=== PATIENT | female | born 1995 | race Caucasian/White ===

== ENCOUNTER 2020-06-22 19:11 | Emergency (ER) | payer SELFPAY ==
[~2020-06-22] VITALS: Ht 152.4 cm; Wt 90.7 kg
[~2020-06-22 19:11] MED LIST: BIRTH CONTROL
[2020-06-22] MEDS ORDERED: LACTATED RINGERS 1,000 ML IV ONE (19:45)
--- NOTE | 2020-06-22 19:57 | ED General ---
General Chief Complaint: General Problems/Pain Stated Complaint: DEHYDRATION/BODY CRAMPS Nursing Triage Note: PT AMBULATE TO ROOM 01 WITH C/O DEHYDRATION AND CRAMPING. PT REPORTS SHE ALSO CAME IN BECAUSE SHE THINKS SHE MIGHT BE . Nursing Sepsis Screen: No Definite Risk Source of Information: Patient Exam Limitations: No Limitations History of Present Illness Date Seen by Provider: Jun 22, 2020 Time Seen by Provider: 19:52 Initial Comments 25 year old causian female patient ambulated to ED with complaints of feeling "dehydrated" due to dry mouth and occasional body aches and her body "locks up". The patient reports she has been seen by her primary care provider for this before and was told it was due to her "metabolism". The patient states she also believes she could be . She states her LMP was approximately 3 years ago, but about 2 weeks ago she had vaginal bleeding for 4 days but does not feel this was her menstrual cycle. Timing/Duration: 2-3 Days Severity: Mild Associated Systoms: No Cough, No Fever/Chills; Headaches, Loss of Appetite; No Nausea/Vomiting Allergies and Home Medications Allergies Coded Allergies: No Known Drug Allergies (Unverified , 05/25/11) Patient Home Medication List Home Medication List Reviewed: Yes Review of Systems Review of Systems Constitutional: see HPI; No chills, No diaphoresis, No fever, No malaise, No weakness EENTM: see HPI (Reports dry mouth) Respiratory: no symptoms reported, see HPI; No cough, No short of breath, No wheezing Cardiovascular: no symptoms reported, see HPI; No edema, No palpitations, No syncope Gastrointestinal: see HPI; No abdominal pain, No constipation, No diarrhea, No heartburn; loss of appetite; No nausea, No vomiting Genitourinary: see HPI; No discharge, No dysuria; frequency; No hematuria Musculoskeletal: see HPI; No back pain; muscle cramps, muscle twitching; No muscle weakness, No neck pain Skin: no symptoms reported, see HPI; No change in color, No change in hair/nails, No rash Psychiatric/Neurological: No Symptoms Reported Hematologic/Lymphatic: No Symptoms Reported Immunological/Allergic: no symptoms reported All Other Systems Reviewed Negative Unless Noted: Yes Past Ejvvmkm-Qtdmyw-Fbjgdn Hx Past Med/Social Hx: Reviewed Nursing Past Med/Soc Hx Patient Social History Alcohol Use: Denies Use Recreational Drug Use: No Smoking Status: Current Everyday Smoker Type Used: Cigars 2nd Hand Smoke Exposure: Yes Recent Foreign Travel: No Contact w/Someone Who Travel: No Recent Infectious Disease Expo: No Recent Hopitalizations: No Physical Abuse: No Sexual Abuse: No Mistreated: No Fear: No Seasonal Allergies Seasonal Allergies: Yes Past Medical History Surgeries: Yes Bladder Surgery Respiratory: No Cardiac: No Neurological: No Genitourinary: No Gastrointestinal: No Musculoskeletal: Yes (BACK PAIN) Endocrine: No HEENT: No Cancer: No Psychosocial: Yes Anxiety, Depression Integumentary: Yes Eczema Blood Disorders: No Physical Exam Vital Signs Vital Signs - First Documented 06/22/20 19:39 Temp 35.7 Pulse 88 Resp 17 B/P (MAP) 102/76 (85) O2 Delivery Room Air Capillary Refill : Less Than 3 Seconds Height, Weight, BMI Height: '" Weight: lbs. oz. kg; 39.00 BMI Method: General Appearance: No Apparent Distress, WD/WN Eyes: Bilateral Eye Normal Inspection, Bilateral Eye PERRL HEENT: PERRL/EOMI, TMs Normal; No Moist Mucous Membranes, No Pale Conjunctivae (L), No Pale Conjunctivae (R) Neck: Full Range of Motion, Normal Inspection, Non Tender, Supple Respiratory: Lungs Clear, Normal Breath Sounds, No Accessory Muscle Use, No Respiratory Distress; No Accessory Muscle Use, No Crackles, No Decreased Breath Sounds, No Respiratory Distress, No Stridor Cardiovascular: Regular Rate, Rhythm, No Edema, No Murmur, Normal Peripheral Pulses Gastrointestinal: Normal Bowel Sounds, Non Tender, Soft Rectal: Deferred Back: Normal Inspection, No CVA Tenderness, No Vertebral Tenderness Extremity: Normal Capillary Refill, Normal Inspection, Normal Range of Motion, Non Tender, No Calf Tenderness, No Pedal Edema Neurologic/Psychiatric: Alert, Oriented x3, No Motor/Sensory Deficits, Normal Mood/Affect Skin: Normal Color, Warm/Dry Lymphatic: No Adenopathy Progress/Results/Core Measures Suspected Sepsis Recent Fever Within 48 Hours: No Infection Criteria Present: None New/Unexplained Altered Menta: No Sepsis Screen: No Definite Risk SIRS Temperature: Pulse: 88 Respiratory Rate: 17 Laboratory Tests 06/22/20 20:09: White Blood Count 13.6H Blood Pressure 102 /76 Mean: 85 Laboratory Tests 06/22/20 20:09: Creatinine 0.77, Platelet Count 278, Total Bilirubin 0.2 Results/Orders Lab Results Laboratory Tests Test 06/22/20 19:52 06/22/20 20:09 Range/Units Urine Color YELLOW Urine Clarity SL CLOUDY Urine pH 6.5 5-9 Urine Specific [place] 1.020 1.016-1.022 Urine Protein NEGATIVE NEGATIVE Urine Glucose (UA) NEGATIVE NEGATIVE Urine Ketones NEGATIVE NEGATIVE Urine Nitrite NEGATIVE NEGATIVE Urine Bilirubin NEGATIVE NEGATIVE Urine Urobilinogen 1.0 < = 1.0 MG/DL Urine Leukocyte Esterase NEGATIVE NEGATIVE Urine RBC (Auto) 3+ H NEGATIVE Urine RBC 10-25 H /HPF Urine WBC NONE /HPF Urine Squamous Epithelial Cells 5-10 /HPF Urine Crystals NONE /LPF Urine Bacteria TRACE /HPF Urine Casts PRESENT /LPF Urine Hyaline Casts RARE /LPF Urine Mucus LARGE H /LPF Urine Culture Indicated NO White Blood Count 13.6 H 4.3-11.0 10^3/uL Red Blood Count 4.72 3.80-5.11 10^6/uL Hemoglobin 13.0 11.5-16.0 g/dL Hematocrit 39 35-52 % Mean Corpuscular Volume 84 80-99 fL Mean Corpuscular Hemoglobin 28 25-34 pg Mean Corpuscular Hemoglobin Concent 33 32-36 g/dL Red Cell Distribution Width 13.5 10.0-14.5 % Platelet Count 278 130-400 10^3/uL Mean Platelet Volume 11.1 9.0-12.2 fL Immature Granulocyte % (Auto) 0 % Neutrophils (%) (Auto) 61 42-75 % Lymphocytes (%) (Auto) 29 12-44 % Monocytes (%) (Auto) 6 0-12 % Eosinophils (%) (Auto) 3 0-10 % Basophils (%) (Auto) 1 0-10 % Neutrophils # (Auto) 8.3 H 1.8-7.8 10^3/uL Lymphocytes # (Auto) 3.9 1.0-4.0 10^3/uL Monocytes # (Auto) 0.9 0.0-1.0 10^3/uL Eosinophils # (Auto) 0.4 H 0.0-0.3 10^3/uL Basophils # (Auto) 0.1 0.0-0.1 10^3/uL Immature Granulocyte # (Auto) 0.0 0.0-0.1 10^3/uL Sodium Level 139 135-145 MMOL/L Potassium Level 3.7 3.6-5.0 MMOL/L Chloride Level 104 98-107 MMOL/L Carbon Dioxide Level 24 21-32 MMOL/L Anion Gap 11 5-14 MMOL/L Blood Urea Nitrogen 11 7-18 MG/DL Creatinine 0.77 0.60-1.30 MG/DL Estimat Glomerular Filtration Rate > 60 BUN/Creatinine Ratio 14 Glucose Level 88 70-105 MG/DL Calcium Level 9.3 8.5-10.1 MG/DL Corrected Calcium 9.3 8.5-10.1 MG/DL Total Bilirubin 0.2 0.1-1.0 MG/DL Aspartate Amino Transf (AST/SGOT) 16 5-34 U/L Alanine Aminotransferase (ALT/SGPT) 19 0-55 U/L Alkaline Phosphatase 89 40-136 U/L Total Creatine Kinase 101 29-168 U/L Myoglobin 19.1 10.0-92.0 NG/ML Total Protein 7.1 6.4-8.2 GM/DL Albumin 4.0 3.2-4.5 GM/DL My Orders Orders - KAVITA BULLOCK Urine Bedside (06/22/20 19:14) Cbc With Automated Diff (06/22/20 19:14) Comprehensive Metabolic Panel (06/22/20 19:14) Creatine Kinase (06/22/20 19:14) Ua Culture If Indicated (06/22/20 19:14) Myoglobin Serum (06/22/20 19:14) Ed Iv/Invasive Line Start (06/22/20 19:45) Lactated Ringers (Lr 1000 Ml Iv Solution (06/22/20 19:45) Medications Given in ED Current Medications Medications Dose Ordered Sig/Jenifer Route Start Time Stop Time Status Last Admin Dose Admin Lactated Ringer's 1,000 ml @ 0 mls/hr Q0M ONCE IV 06/22/20 19:45 06/22/20 19:46 DC 06/22/20 20:08 999 MLS/HR Vital Signs/I&O 06/22/20 19:39 Temp 35.7 Pulse 88 Resp 17 B/P (MAP) 102/76 (85) O2 Delivery Room Air Capillary Refill : Less Than 3 Seconds Blood Pressure Mean: 85 Progress Note : Time: 19:52 Progress Note patient seen and evaluated, will get labs, LR IV 1 Liter and will re-evaluate. 2044 labs all within normal limits, patient reports feeling better. Discharge instructions and return precautions reviewed. Departure Impression Primary Impression: Myalgia Disposition: HOME, SELF-CARE Condition: Improved Departure-Patient Inst. Decision time for Depature: 20:50 Referrals: [facility]/NICOLE QUIÑONES MD (PCP/Family) Primary Care Physician Patient Instructions: Muscle and Bone Pain (DC) Add. Discharge Instructions: Establish care with [facility] in [place]. Increase water intake and use sports drinks. Return to the emergency department for new urgent health care needs. All discharge instructions reviewed with patient and/or family. Voiced unders tanding. KAVITA BULLOCK Jun 22, 2020 19:57
[2020-06-22 20:21] LABS: BASOPHILS # (AUTO) 0.1 10^3/uL (0.0-0.1); BASOPHILS % (AUTO) 1 % (0-10); EOSINOPHILS # (AUTO) 0.4 10^3/uL (0.0-0.3); EOSINOPHILS % (AUTO) 3 % (0-10); HEMATOCRIT 39 % (35-52); LYMPHOCYTES # (AUTO) 3.9 10^3/uL (1.0-4.0); LYMPHOCYTES % (AUTO) 29 % (12-44); MEAN CORPUSCULAR HEMOGLOBIN 28 pg (25-34); MEAN CORPUSCULAR HGB CONC 33 g/dL (32-36); MEAN CORPUSCULAR VOLUME 84 fL (80-99); MEAN PLATELET VOLUME 11.1 fL (9.0-12.2); MONOCYTES # (AUTO) 0.9 10^3/uL (0.0-1.0); MONOCYTES % (AUTO) 6 % (0-12); NEUTROPHILS # (AUTO) 8.3 10^3/uL (1.8-7.8); NEUTROPHILS % (AUTO) 61 % (42-75); PLATELET COUNT 278 10^3/uL (130-400); WHITE BLOOD COUNT 13.6 10^3/uL (4.3-11.0)
[2020-06-22 20:22] LABS: BILIRUBIN,URINE NEGATIVE (NEGATIVE); COLOR,URINE YELLOW; GLUCOSE, URINE (UA) NEGATIVE (NEGATIVE); KETONES,URINE NEGATIVE (NEGATIVE); LEUKOCYTE ESTERASE ,URINE NEGATIVE (NEGATIVE); NITRITE,URINE NEGATIVE (NEGATIVE); PH,URINE 6.5 (5-9); PROTEIN,URINE NEGATIVE (NEGATIVE)
[2020-06-22 20:29] LABS: BACTERIA,URINE TRACE /HPF; CLARITY,URINE SL CLOUDY; HYALINE CASTS, URINE RARE /LPF
[2020-06-22 20:33] LABS: CHLORIDE 104 MMOL/L (98-107); POTASSIUM 3.7 MMOL/L (3.6-5.0); SODIUM 139 MMOL/L (135-145)
[2020-06-22 20:34] LABS: CALCIUM 9.3 MG/DL (8.5-10.1)
[2020-06-22 20:35] LABS: GLUCOSE 88 MG/DL (70-105); TOTAL PROTEIN 7.1 GM/DL (6.4-8.2)
[2020-06-22 20:36] LABS: CARBON DIOXIDE 24 MMOL/L (21-32)
[2020-06-22 20:37] LABS: BILIRUBIN,TOTAL 0.2 MG/DL (0.1-1.0)
[2020-06-22 20:38] LABS: ALKALINE PHOSPHATASE 89 U/L (40-136)
[2020-06-22 20:39] LABS: CREATININE SERUM 0.77 MG/DL (0.60-1.30); GFR ESTIMATED > 60
[2020-06-22 20:40] LABS: BUN/CREATININE RATIO 14
[2020-06-22 20:42] LABS: ALANINE AMINOTRANSFERASE 19 U/L (0-55); CREATINE KINASE 101 U/L (29-168)
[2020-06-22 21:02] VITALS: BP 131/74
== END 2020-06-22 21:02 | disposition home or self-care (01) ==
LOC: EDUNIT# 19:11 → ER 19:14
DX: M79.10 Myalgia, unspecified site (principal); E86.0 Dehydration; F17.290 Nicotine dependence, other tobacco product, uncomplicated
CPT/HCPCS: 36415; 80053; 81000; 82550; 83874; 84703; 85025

== ENCOUNTER 2020-07-30 22:31 | Emergency (ER) | payer SELFPAY ==
--- NOTE | 2020-07-30 23:23 | NUR ---
Attempted to call patient inside, no answer
--- NOTE | 2020-07-30 23:37 | NUR ---
Called backa second time and still no answer
--- NOTE | 2020-07-30 23:54 | NUR ---
Pt never seen in ER; attempted to make contact with no answer.
== END 2020-07-30 23:55 | disposition left against medical advice (07) ==
LOC: EDUNIT# 22:31 → ER 22:34
DX: R07.0 Pain in throat (principal)

== ENCOUNTER 2021-01-04 21:26 | Emergency (ER) | payer SELFPAY ==
[~2021-01-04] VITALS: Ht 162.6 cm; Wt 102.1 kg
[2021-01-04 22:01] LABS: BASOPHILS # (AUTO) 0.1 10^3/uL (0.0-0.1); BASOPHILS % (AUTO) 1 % (0-10); EOSINOPHILS # (AUTO) 0.3 10^3/uL (0.0-0.3); EOSINOPHILS % (AUTO) 2 % (0-10); HEMATOCRIT 40 % (35-52); HEMOGLOBIN 13.1 g/dL (11.5-16.0); LYMPHOCYTES # (AUTO) 3.3 10^3/uL (1.0-4.0); LYMPHOCYTES % (AUTO) 27 % (12-44); MEAN CORPUSCULAR HEMOGLOBIN 28 pg (25-34); MEAN CORPUSCULAR HGB CONC 33 g/dL (32-36); MEAN CORPUSCULAR VOLUME 86 fL (80-99); MONOCYTES # (AUTO) 0.8 10^3/uL (0.0-1.0); MONOCYTES % (AUTO) 6 % (0-12); NEUTROPHILS # (AUTO) 7.7 10^3/uL (1.8-7.8); NEUTROPHILS % (AUTO) 64 % (42-75); PLATELET COUNT 284 10^3/uL (130-400); WHITE BLOOD COUNT 12.1 10^3/uL (4.3-11.0)
[2021-01-04 22:14] LABS: BILIRUBIN,URINE NEGATIVE (NEGATIVE); CLARITY,URINE CLEAR; COLOR,URINE YELLOW; GLUCOSE, URINE (UA) NEGATIVE (NEGATIVE); KETONES,URINE NEGATIVE (NEGATIVE); LEUKOCYTE ESTERASE ,URINE NEGATIVE (NEGATIVE); NITRITE,URINE NEGATIVE (NEGATIVE); PROTEIN,URINE NEGATIVE (NEGATIVE)
[2021-01-04 22:19] LABS: BACTERIA,URINE TRACE /HPF; WBC,URINE RARE /HPF
--- NOTE | 2021-01-04 23:02 | ED GU-Female ---
General Chief Complaint: Female Reproductive Stated Complaint: VAGINAL PAIN / BURNING / APROX 4-5 W PREG Source: patient Exam Limitations: no limitations History of Present Illness Date Seen by Provider: Jan 04, 2021 Time Seen by Provider: 21:35 Initial Comments This 25-year-old 2 para 1 presents to the emergency room at an estimated 5 weeks gestational age with complaints of right-sided pelvic pain and spotting. [facility] where she had a test performed and blood work drawn. She was found to be . In addition to her spotting and pelvic pain she reports worsening pain in the pelvis after urination. She denies any urethral type pain during urination, vaginal discharge, or pain with intercourse. She is not suspicious of vaginal infection. She does report being Rh-. She has had nausea for the past few weeks. No fevers. No constipation or diarrhea. LMP was around 28 November. Allergies and Home Medications Allergies Coded Allergies: No Known Drug Allergies (Unverified , 05/25/11) Patient Home Medication List Home Medication List Reviewed: Yes Review of Systems Review of Systems Constitutional: no symptoms reported EENTM: no symptoms reported Respiratory: no symptoms reported Cardiovascular: no symptoms reported Gastrointestinal: see HPI Genitourinary: see HPI : Yes Musculoskeletal: no symptoms reported Skin: no symptoms reported Psychiatric/Neurological: No Symptoms Reported Endocrine: No Symptoms Reported Hematologic/Lymphatic: No Symptoms Reported Past Aamvxjz-Jdanrc-Wjnmka Hx Past Med/Social Hx: Reviewed Nursing Past Med/Soc Hx Patient Social History Alcohol Use: Denies Use Type Used: Cigars 2nd Hand Smoke Exposure: Yes Recent Hopitalizations: No Seasonal Allergies Seasonal Allergies: Yes Past Medical History Surgeries: Yes Bladder Surgery Respiratory: No Cardiac: No Neurological: No Genitourinary: No Gastrointestinal: No Musculoskeletal: Yes (BACK PAIN) Endocrine: No HEENT: No Cancer: No Psychosocial: Yes Anxiety, Depression Integumentary: Yes Eczema Blood Disorders: No Physical Exam Vital Signs Capillary Refill : Height, Weight, BMI Height: '" Weight: lbs. oz. kg; 39.00 BMI Method: General Appearance: WD/WN, no apparent distress HEENT: PERRL/EOMI, normal ENT inspection Neck: normal inspection Cardiovascular: regular rate, rhythm, no edema, no murmur Respiratory: lungs clear, normal breath sounds, no respiratory distress Gastrointestinal: normal bowel sounds, soft, other (Tenderness over the right pelvis) Extremities: normal inspection, no pedal edema Neurologic/Psychiatric: mannequin mounter II-XII nml as tested, no motor/sensory deficits, alert, normal mood/affect, oriented x 3 Skin: normal color, warm/dry Progress/Results/Core Measures Suspected Sepsis SIRS Temperature: Pulse: Respiratory Rate: Laboratory Tests 01/04/21 21:50: White Blood Count 12.1H Blood Pressure / Mean: Laboratory Tests 01/04/21 21:50: Platelet Count 284 Results/Orders Lab Results Laboratory Tests Test 01/04/21 21:35 01/04/21 21:50 Range/Units Urine Color YELLOW Urine Clarity CLEAR Urine pH 6.0 5-9 Urine Specific [place] 1.025 H 1.016-1.022 Urine Protein NEGATIVE NEGATIVE Urine Glucose (UA) NEGATIVE NEGATIVE Urine Ketones NEGATIVE NEGATIVE Urine Nitrite NEGATIVE NEGATIVE Urine Bilirubin NEGATIVE NEGATIVE Urine Urobilinogen 0.2 < = 1.0 MG/DL Urine Leukocyte Esterase NEGATIVE NEGATIVE Urine RBC (Auto) 3+ H NEGATIVE Urine RBC 5-10 H /HPF Urine WBC RARE /HPF Urine Squamous Epithelial Cells 10-25 H /HPF Urine Crystals NONE /LPF Urine Bacteria TRACE /HPF Urine Casts NONE /LPF Urine Mucus SMALL H /LPF Urine Culture Indicated NO White Blood Count 12.1 H 4.3-11.0 10^3/uL Red Blood Count 4.67 3.80-5.11 10^6/uL Hemoglobin 13.1 11.5-16.0 g/dL Hematocrit 40 35-52 % Mean Corpuscular Volume 86 80-99 fL Mean Corpuscular Hemoglobin 28 25-34 pg Mean Corpuscular Hemoglobin Concent 33 32-36 g/dL Red Cell Distribution Width 13.8 10.0-14.5 % Platelet Count 284 130-400 10^3/uL Mean Platelet Volume 11.0 9.0-12.2 fL Immature Granulocyte % (Auto) 0 % Neutrophils (%) (Auto) 64 42-75 % Lymphocytes (%) (Auto) 27 12-44 % Monocytes (%) (Auto) 6 0-12 % Eosinophils (%) (Auto) 2 0-10 % Basophils (%) (Auto) 1 0-10 % Neutrophils # (Auto) 7.7 1.8-7.8 10^3/uL Lymphocytes # (Auto) 3.3 1.0-4.0 10^3/uL Monocytes # (Auto) 0.8 0.0-1.0 10^3/uL Eosinophils # (Auto) 0.3 0.0-0.3 10^3/uL Basophils # (Auto) 0.1 0.0-0.1 10^3/uL Immature Granulocyte # (Auto) 0.0 0.0-0.1 10^3/uL C-Reactive Protein High Sensitivity 2.08 H 0.00-0.50 MG/DL Human Chorionic Gonadotropin, Quant 826 H <5 MIU/ML My Orders Orders - MAYKEL IBANEZ MD Ua Culture If Indicated (01/04/21 21:35) Cbc With Automated Diff (01/04/21 21:41) Hcg,Quantitative (01/04/21 21:41) Abo Rh Type (01/04/21 21:41) Ed Iv/Invasive Line Start (01/04/21 21:41) Hs C Reactive Protein (01/04/21 21:41) Rh Immune Globulin Rhophylac (01/04/21 22:36) Rhogam Administration (01/04/21 22:36) Vital Signs/I&O Capillary Refill : Progress Note : Progress Note Quantitative hCG was 826. This is below the 2500 cutoff for ultrasound call back. An ultrasound order was given for tomorrow morning. Patient was advised to return if symptoms worsen and to schedule a follow-up appointment for the clinic tomorrow morning. She was found to be Rh-, and RhoGam was administered. Departure Impression Primary Impression: Pelvic pain affecting Qualified Codes: O26.891 - Other specified related conditions, first trimester; R10.2 - Pelvic and perineal pain Additional Impressions: Vaginal bleeding during Rh negative status during Qualified Codes: O26.891 - Other specified related conditions, first trimester; Z67.91 - Unspecified blood type, rh negative Disposition: 01 HOME, SELF-CARE Condition: Stable Departure-Patient Inst. Decision time for Depature: 22:59 Referrals: [facility] (PCP/Family) Primary Care Physician Patient Instructions: in Rh-Negative People, Bleeding In Early Add. Discharge Instructions: Drink plenty of clear liquids to stay well-hydrated. Observe pelvic rest (nothing in the vagina including intercourse) until cleared by your doctor. You may take Tylenol (acetaminophen) up to 1000 mg every 6 hours as needed for pain. Call with questions or concerns. Return to the ER if you have worsening symptoms. Return to the hospital at 7:30 tomorrow morning for a ultrasound. This will confirm that your dates and ensure your pain is not from an ectopic . All discharge instructions reviewed with patient and/or family. Voiced understanding. Copy Copies To 1: HONG JOYA JOSHUA T MD Jan 04, 2021 23:02
[2021-01-04 23:15] VITALS: BP 114/75
[2021-01-04 23:26] VITALS: BP 111/85
== END 2021-01-04 23:26 | disposition home or self-care (01) ==
LOC: EDUNIT# 21:26 → ER 21:28
DX: O20.0 Threatened abortion (principal); O26.891 Other specified pregnancy related conditions, first trimester; Z67.91 Unspecified blood type, Rh negative; O99.331 Smoking (tobacco) complicating pregnancy, first trimester; F17.290 Nicotine dependence, other tobacco product, uncomplicated; Z3A.01 Less than 8 weeks gestation of pregnancy
CPT/HCPCS: 36415; 81000; 84702; 85025; 86141; 86900; 86901

== ENCOUNTER → 2021-01-05 | Outpatient (CLI) | payer SELFPAY ==
--- NOTE | 2021-01-05 09:59 | Diagnostic Imaging Report ---
INDICATION: Vaginal bleeding. Uterus measures 7.9 x 4.5 x 5.6 cm. There is a tiny intrauterine gestational sac measuring 3 mm in size. No definite yolk sac or pole is identified at this time, likely owing to early gestation. No fernando-gestational sac hemorrhage is detected. Left ovary was not visualized. Right ovary is unremarkable. No adnexal mass or free fluid is detected. IMPRESSION: Tiny intrauterine gestational sac without evidence of pole or yolk sac at this time likely owing to early gestation. Follow-up ultrasound and/or correlation with serial beta hCG levels could be performed to confirm viability. No definite complicating features are detected. Dictated by: Dictated on workstation # [id number]
== END ==
LOC: RAD 08:00
PROVIDERS: ATTEND Family Medicine
DX: O26.851 Spotting complicating pregnancy, first trimester (principal); N93.9 Abnormal uterine and vaginal bleeding, unspecified; R10.2 Pelvic and perineal pain; Z3A.00 Weeks of gestation of pregnancy not specified
CPT/HCPCS: 76801; 76817

== ENCOUNTER 2021-01-17 21:35 | Emergency (ER) | payer MEDICAID ==
[~2021-01-17] VITALS: Ht 152 cm; Wt 95.0 kg
[2021-01-17] MEDS ORDERED: LACTATED RINGERS 1,000 ML IV ONE (22:15)
[2021-01-17] MEDS ORDERED: ONDANSETRON 4 MG/2 ML (SDV) Z0FRAN IVP ONE (22:15)
--- NOTE | 2021-01-17 22:21 | ED General ---
General Chief Complaint: Dizziness/Syncope Stated Complaint: LIGHTHEADED, BODY ACHES, 6 WKS Nursing Triage Note: PT PRESENTS TO ED FOR SOME NAUSEA, PT STATES SHE IS 6 WEEKS AND THE NAUSEA HAS BEEN GOING ON SINCE THEN. PT C/O FEELING LIGHT HEADED, STATES IT STARTED YESTERDAT. PT ALSO REPORTS MUSCLE ACHES OF LOWER EXTREMITIES. PER PT THIS HAS HAPPENED TO HER BEFORE DUE TO LOW POTASSIUM. PT ALSO HAS A RASH ON THE RIGHT SIDE OF HER NECK THAT SHE NOTICED TODAY. Nursing Sepsis Screen: No Definite Risk Source of Information: Patient History of Present Illness Date Seen by Provider: Jan 17, 2021 Time Seen by Provider: 21:49 Initial Comments PT ARRIVES VIA POV FROM HOME PT WITH MULTIPLE COMPLAINTS--SOME ONGOING DUE TO RECENT DX OF PT IS APPROXIMATELY 6 WEEKS , WITH LMP 11/28/20. C/O NAUSEA, OCCASIONAL VOMITING "A LITTLE BIT" --MOSTLY DRY HEAVES, SINCE BECOMING NO DIARRHEA NO ABDOMINAL PAIN NO VAGINAL BLEEDING NO URINARY SYMPTOMS C/O LEGS ACHING--HIPS AND ANTERIOR THIGHS ARE SORE NO INJURY NO PARESTHESIAS OR MOTOR DEFICITS STATES SHE FELT LIKE THIS ONCE BEFORE WHEN HER POTASSIUM WAS LOW C/O FEELING LIGHTHEADED STATES SHE "FEELS REALLY DEHYDRATED" STATES SHE HAS NOT BEEN DRINKING WATER--"DON'T LIKE IT" STATES SHE HAS HAD 2 BOTTLES OF WATER AND 2 BOTTLES OF POP TODAY PT DID NOT EAT BREAKFAST PT ATE CHIPS AND A CANDY BAR FOR LUNCH PT HAD PIZZA FOR DINNER PT ALSO C/O RASH ON BOTH SIDES OF HER NECK--ITCHY AND SORE--STARTED TODAY GOT A NEW NECKLACE AND SYMPTOMS BEGAN WHILE WEARING THAT PT DENIES ANY OTHER COVID-19 SYMPTOMS NO FEVER/SWEATS/CHILLS NO SORE THROAT NO LOSS OF TASTE/SMELL NO COUGH OR URI SYMPTOMS NO SHORTNESS OF BREATH NO CHEST PAIN NO HEADACHE NO KNOWN SICK CONTACTS PT HAS NOT TAKEN ANYTHING FOR SYMPTOMS HAD FIRST VISIT YESTERDAY. NEXT APPOINTMENT 02/14/21 SEEN HERE 01/05/21 FOR PELVIC PAIN AND SPOTTING. LMP 11/28/20 HAD OUTPATIENT ULTRASOUND THAT SAME DAY--SHOWED INTRA-UTERINE GESTATIONAL SAC PT IS RH NEGATIVE AND RECEIVED RHOGAM SHOT AT THAT TIME. PCP; [facility] Allergies and Home Medications Allergies Coded Allergies: No Known Drug Allergies (Unverified , 05/25/11) Home Medications Doxylamine/Pyridoxine HCl 1 Each Tablet., 2 EACH PO HS Prescribed by: NICOLE GONSALEZ on 01/17/21 4119 Patient Home Medication List Home Medication List Reviewed: Yes Review of Systems Review of Systems Constitutional: see HPI, dizziness EENTM: no symptoms reported Respiratory: no symptoms reported; No cough, No short of breath Cardiovascular: no symptoms reported Gastrointestinal: see HPI; No abdominal pain, No diarrhea; nausea, vomiting Genitourinary: no symptoms reported : Yes Expected Date of Delivery: Sep 12, 2021 LMP: Nov 28, 2020 Musculoskeletal: see HPI Skin: see HPI Psychiatric/Neurological: No Symptoms Reported; Denies Headache, Denies Numbness, Denies Paresthesia, Denies Tingling, Denies Weakness Hematologic/Lymphatic: No Symptoms Reported Immunological/Allergic: no symptoms reported Past Qmkykzh-Sahlbm-Yafgrl Hx Past Med/Social Hx: Reviewed and Corrections made Patient Social History Alcohol Use: Occasionally Uses Drug of Choice: THC Smoking Status: Current Everyday Smoker Type Used: Cigars, Cigarettes 2nd Hand Smoke Exposure: Yes Recent Infectious Disease Expo: No Recent Hopitalizations: No Substance type: Marijuana Seasonal Allergies Seasonal Allergies: Yes Past Medical History Surgeries: Yes Bladder Surgery Respiratory: No Cardiac: No Neurological: No : Yes (PT REPORTS SHE IS 6 WEEKS .) Expected Date of Delivery: Sep 12, 2021 Last Menstrual Period: Nov 28, 2020 Genitourinary: Yes (BLADDER SURGERY) Gastrointestinal: No Musculoskeletal: Yes (BACK PAIN) Endocrine: No HEENT: No Cancer: No Psychosocial: Yes Anxiety, Depression Integumentary: Yes Eczema Blood Disorders: No Physical Exam Vital Signs Vital Signs - First Documented 01/17/21 01/17/21 21:53 23:52 Temp 36.0 Pulse 96 Resp 16 B/P (MAP) 135/79 (97) Pulse Ox 98 O2 Delivery Room Air Capillary Refill : Less Than 3 Seconds Height, Weight, BMI Height: '" Weight: lbs. oz. kg; 41.00 BMI Method: General Appearance: No Apparent Distress, WD/WN, Obese, Other (WALKS AND MOVES WITHOUT DIFFICULTY; OBESE, MALODOROUS) HEENT: PERRL/EOMI, TMs Normal, Normal ENT Inspection, Pharynx Normal, Moist Mucous Membranes, Other (TONGUE PIERCED) Neck: Full Range of Motion, Normal Inspection, Non Tender, Supple Respiratory: Normal Breath Sounds, No Accessory Muscle Use, No Respiratory Distress Cardiovascular: Regular Rate, Rhythm, No Edema, No JVD, No Murmur Gastrointestinal: Normal Bowel Sounds, No Organomegaly, No Pulsatile Mass, Non Tender, Soft Back: No CVA Tenderness Extremity: Normal Range of Motion, Non Tender, No Calf Tenderness, No Pedal Edema, Other (VERY SLIGHT TENDERNESS TO LATERAL HIPS AND ANTERIOR/LATERAL THIGHS --EQUAL BILATERALLY. FULL ROM. ) Neurologic/Psychiatric: Alert, Oriented x3, No Motor/Sensory Deficits, Normal Mood/Affect, physical education aide II-XII Norm as Tested Skin: Normal Color, Warm/Dry, Rash (FEW SMALL PATCHY AREAS OF MILD ERYTHEMA TO ANTERIOR AND BILATERAL NECK--NO SKIN BREAKDOWN OR BLISTERING. NON-TENDER) Progress/Results/Core Measures Suspected Sepsis Recent Fever Within 48 Hours: No Infection Criteria Present: None New/Unexplained Altered Menta: No Sepsis Screen: No Definite Risk SIRS Temperature: Pulse: 96 Respiratory Rate: 16 Laboratory Tests 01/17/21 22:30: White Blood Count 11.9H Blood Pressure 135 /79 Mean: 97 Laboratory Tests 01/17/21 22:30: Creatinine 0.67, Platelet Count 282, Total Bilirubin 0.2 Results/Orders Lab Results Laboratory Tests Test 01/17/21 22:30 01/17/21 23:02 Range/Units White Blood Count 11.9 H 4.3-11.0 10^3/uL Red Blood Count 4.45 3.80-5.11 10^6/uL Hemoglobin 12.4 11.5-16.0 g/dL Hematocrit 38 35-52 % Mean Corpuscular Volume 84 80-99 fL Mean Corpuscular Hemoglobin 28 25-34 pg Mean Corpuscular Hemoglobin Concent 33 32-36 g/dL Red Cell Distribution Width 14.0 10.0-14.5 % Platelet Count 282 130-400 10^3/uL Mean Platelet Volume 10.9 9.0-12.2 fL Immature Granulocyte % (Auto) 0 % Neutrophils (%) (Auto) 67 42-75 % Lymphocytes (%) (Auto) 24 12-44 % Monocytes (%) (Auto) 6 0-12 % Eosinophils (%) (Auto) 2 0-10 % Basophils (%) (Auto) 0 0-10 % Neutrophils # (Auto) 8.0 H 1.8-7.8 10^3/uL Lymphocytes # (Auto) 2.9 1.0-4.0 10^3/uL Monocytes # (Auto) 0.7 0.0-1.0 10^3/uL Eosinophils # (Auto) 0.3 0.0-0.3 10^3/uL Basophils # (Auto) 0.1 0.0-0.1 10^3/uL Immature Granulocyte # (Auto) 0.0 0.0-0.1 10^3/uL Sodium Level 138 135-145 MMOL/L Potassium Level 3.4 L 3.6-5.0 MMOL/L Chloride Level 104 98-107 MMOL/L Carbon Dioxide Level 20 L 21-32 MMOL/L Anion Gap 14 5-14 MMOL/L Blood Urea Nitrogen 9 7-18 MG/DL Creatinine 0.67 0.60-1.30 MG/DL Estimat Glomerular Filtration Rate > 60 BUN/Creatinine Ratio 13 Glucose Level 81 70-105 MG/DL Calcium Level 9.5 8.5-10.1 MG/DL Corrected Calcium 9.4 8.5-10.1 MG/DL Magnesium Level 1.7 1.6-2.4 MG/DL Total Bilirubin 0.2 0.1-1.0 MG/DL Aspartate Amino Transf (AST/SGOT) 20 5-34 U/L Alanine Aminotransferase (ALT/SGPT) 27 0-55 U/L Alkaline Phosphatase 76 40-136 U/L Total Protein 7.3 6.4-8.2 GM/DL Albumin 4.1 3.2-4.5 GM/DL Amylase Level 39 25-125 U/L Lipase 17 8-78 U/L Urine Color YELLOW Urine Clarity CLEAR Urine pH 6.5 5-9 Urine Specific [place] 1.015 L 1.016-1.022 Urine Protein NEGATIVE NEGATIVE Urine Glucose (UA) NEGATIVE NEGATIVE Urine Ketones NEGATIVE NEGATIVE Urine Nitrite NEGATIVE NEGATIVE Urine Bilirubin NEGATIVE NEGATIVE Urine Urobilinogen 0.2 < = 1.0 MG/DL Urine Leukocyte Esterase NEGATIVE NEGATIVE Urine RBC (Auto) 1+ H NEGATIVE Urine RBC RARE /HPF Urine WBC NONE /HPF Urine Squamous Epithelial Cells 2-5 /HPF Urine Crystals NONE /LPF Urine Bacteria TRACE /HPF Urine Casts NONE /LPF Urine Mucus NEGATIVE /LPF Urine Culture Indicated NO Urine Opiates Screen NEGATIVE NEGATIVE Urine Oxycodone Screen NEGATIVE NEGATIVE Urine Methadone Screen NEGATIVE NEGATIVE Urine Propoxyphene Screen NEGATIVE NEGATIVE Urine Barbiturates Screen NEGATIVE NEGATIVE Ur Tricyclic Antidepressants Screen NEGATIVE NEGATIVE Urine Phencyclidine Screen NEGATIVE NEGATIVE Urine Amphetamines Screen NEGATIVE NEGATIVE Urine Methamphetamines Screen NEGATIVE NEGATIVE Urine Benzodiazepines Screen NEGATIVE NEGATIVE Urine Cocaine Screen NEGATIVE NEGATIVE Urine Cannabinoids Screen POSITIVE H NEGATIVE My Orders Orders - NICOLE GONSALEZ DO Ed Iv/Invasive Line Start (01/17/21 22:14) Amylase (01/17/21 22:14) Cbc With Automated Diff (01/17/21 22:14) Comprehensive Metabolic Panel (01/17/21 22:14) Drug Screen Stat (Urine) (01/17/21 22:14) Lipase (01/17/21 22:14) Magnesium (01/17/21 22:14) Ua Culture If Indicated (01/17/21 22:14) Ondansetron Injection (Zofran Injectio (01/17/21 22:15) Ed Iv/Invasive Line Start (01/17/21 22:14) Lactated Ringers (Lr 1000 Ml Iv Solution (01/17/21 22:15) Potassium Chloride (Tablet) (Klor Con Ta (01/17/21 23:45) Medications Given in ED Current Medications Medications Dose Ordered Sig/Jenifer Route Start Time Stop Time Status Last Admin Dose Admin Lactated Ringer's 1,000 ml @ 0 mls/hr Q0M ONCE IV 01/17/21 22:15 01/17/21 22:16 DC 01/17/21 22:35 1,000 MLS/HR Ondansetron HCl 4 mg ONCE ONCE IVP 01/17/21 22:15 01/17/21 22:16 DC 01/17/21 22:34 4 MG Potassium Chloride 20 meq ONCE ONCE PO 01/17/21 23:45 01/17/21 23:46 DC 01/17/21 23:51 20 MEQ Vital Signs/I&O 01/17/21 01/17/21 21:53 23:52 Temp 36.0 36.0 Pulse 96 87 Resp 16 16 B/P (MAP) 135/79 (97) 123/72 (97) Pulse Ox 98 O2 Delivery Room Air Room Air 01/18/21 00:00 Intake Total 1000 ml Balance 1000 ml Capillary Refill : Less Than 3 Seconds Blood Pressure Mean: 97 Progress Note : Progress Note UNEVENTFUL ER STAY GIVEN IV FLUIDS AND ZOFRAN WITH IMPROVEMENT IN SYMPTOMS ALSO GAVE DOSE OF ORAL POTASSIUM DISCUSSED HEALTHY EATING IN , WELL HEALTHY HABITS, WHICH INCLUDE NO SMOKING CIGARETTES, NO DRUG USE WHICH INCLUDES NO USE OF MARIJUANA, AND NO ALCOHOL USE. ALSO ADVISED TO INCREASE WATER INTAKE AND DECREASE POP INTAKE Departure Impression Primary Impression: Nausea and vomiting during prior to 22 weeks gestation Additional Impressions: Marijuana use MILD HYPOKALEMIA CONTACT DERMATITIS TO NECK Smoker Disposition: 01 HOME, SELF-CARE Condition: Stable Departure-Patient Inst. Referrals: [facility] (PCP) Primary Care Physician SHYANN RIVERA APRN (Family) Primary Care Physician Patient Instructions: Drug Abuse and Drug Addiction (DC), How to Plan and Prepare for a Healthy , Marijuana Use and Addiction (DC), Morning Sickness (DC), Nausea and Vomiting of (DC) Add. Discharge Instructions: NO MARIJUANA OR DRUGS OF ANY KIND!! NO SMOKING!!! NO ALCOHOL! LOTS OF CLEAR LIQUIDS--WATER, BROTH, JELLO, GATORADE BRATS DIET--BANANAS, RICE, APPLESAUCE, TOAST, SALTINES FOLLOW UP WITH YOUR DR IN 2-3 DAYS IF NO BETTER, OTHERWISE FOLLOW UP FOR ROUTINE CARE All discharge instructions reviewed with patient and/or family. Voiced understanding. Scripts Doxylamine/Pyridoxine HCl (Marilee Dorman 10-10 mg Tablet) 1 Each Tablet.dr 2 EACH PO HS, #60 TAB Prov: NICOLE GONSALEZ DO 01/17/21 NICOLE GONSALEZ DO Jan 17, 2021 22:21
[2021-01-17 22:43] LABS: BASOPHILS # (AUTO) 0.1 10^3/uL (0.0-0.1); BASOPHILS % (AUTO) 0 % (0-10); EOSINOPHILS # (AUTO) 0.3 10^3/uL (0.0-0.3); EOSINOPHILS % (AUTO) 2 % (0-10); HEMATOCRIT 38 % (35-52); HEMOGLOBIN 12.4 g/dL (11.5-16.0); LYMPHOCYTES # (AUTO) 2.9 10^3/uL (1.0-4.0); LYMPHOCYTES % (AUTO) 24 % (12-44); MEAN CORPUSCULAR HEMOGLOBIN 28 pg (25-34); MEAN CORPUSCULAR HGB CONC 33 g/dL (32-36); MEAN CORPUSCULAR VOLUME 84 fL (80-99); MEAN PLATELET VOLUME 10.9 fL (9.0-12.2); MONOCYTES # (AUTO) 0.7 10^3/uL (0.0-1.0); MONOCYTES % (AUTO) 6 % (0-12); NEUTROPHILS % (AUTO) 67 % (42-75); PLATELET COUNT 282 10^3/uL (130-400); WHITE BLOOD COUNT 11.9 10^3/uL (4.3-11.0)
[2021-01-17 22:54] LABS: ALBUMIN 4.1 GM/DL (3.2-4.5); CHLORIDE 104 MMOL/L (98-107); POTASSIUM 3.4 MMOL/L (3.6-5.0); SODIUM 138 MMOL/L (135-145)
[2021-01-17 22:55] LABS: AMYLASE 39 U/L (25-125); CALCIUM 9.5 MG/DL (8.5-10.1)
[2021-01-17 22:56] LABS: GLUCOSE 81 MG/DL (70-105); TOTAL PROTEIN 7.3 GM/DL (6.4-8.2)
[2021-01-17 22:58] LABS: BILIRUBIN,TOTAL 0.2 MG/DL (0.1-1.0); CARBON DIOXIDE 20 MMOL/L (21-32)
[2021-01-17 23:00] LABS: ALKALINE PHOSPHATASE 76 U/L (40-136); CREATININE SERUM 0.67 MG/DL (0.60-1.30); GFR ESTIMATED > 60
[2021-01-17 23:01] LABS: BUN/CREATININE RATIO 13
[2021-01-17 23:03] LABS: ALANINE AMINOTRANSFERASE 27 U/L (0-55); MAGNESIUM 1.7 MG/DL (1.6-2.4)
[2021-01-17 23:04] LABS: LIPASE 17 U/L (8-78)
[2021-01-17 23:11] LABS: BILIRUBIN,URINE NEGATIVE (NEGATIVE); CLARITY,URINE CLEAR; COLOR,URINE YELLOW; GLUCOSE, URINE (UA) NEGATIVE (NEGATIVE); KETONES,URINE NEGATIVE (NEGATIVE); LEUKOCYTE ESTERASE ,URINE NEGATIVE (NEGATIVE); NITRITE,URINE NEGATIVE (NEGATIVE); PH,URINE 6.5 (5-9); PROTEIN,URINE NEGATIVE (NEGATIVE)
[2021-01-17 23:17] LABS: BACTERIA,URINE TRACE /HPF; RBC,URINE RARE /HPF
[2021-01-17 23:22] LABS: AMPHETAMINE SCREEN, URINE NEGATIVE (NEGATIVE); BARBITURATE SCREEN URINE NEGATIVE (NEGATIVE); BENZODIAZEPINES SCREEN URINE NEGATIVE (NEGATIVE); CANNABINOID SCREEN, URINE POSITIVE (NEGATIVE); COCAINE SCREEN URINE NEGATIVE (NEGATIVE); METHADONE STAT NEGATIVE (NEGATIVE); METHAMPHETAMINE SCREEN URINE S NEGATIVE (NEGATIVE); OPIATE SCREEN URINE NEGATIVE (NEGATIVE); OXYCODONE STAT NEGATIVE (NEGATIVE); PROPOXYPHENE STAT NEGATIVE (NEGATIVE); TRICYCLIC ANTIDEPRESSANTS SCRE NEGATIVE (NEGATIVE)
[2021-01-17] MEDS ORDERED: DOXY1TAB3 PO (23:37)
[2021-01-17] MEDS ORDERED: KCL 10 MEQ TAB (MICRO K) PO ONE (23:45)
[2021-01-17 23:52] VITALS: BP 123/72
== END 2021-01-17 23:56 | disposition home or self-care (01) ==
LOC: EDUNIT# 21:35 → ER 21:38
DX: O21.0 Mild hyperemesis gravidarum (principal); F12.90 Cannabis use, unspecified, uncomplicated; E87.6 Hypokalemia; L25.9 Unspecified contact dermatitis, unspecified cause; E66.9 Obesity, unspecified; F17.210 Nicotine dependence, cigarettes, uncomplicated; F17.290 Nicotine dependence, other tobacco product, uncomplicated; Z3A.22 22 weeks gestation of pregnancy
CPT/HCPCS: 36415; 80053; 80306; 81000; 82150; 83690; 83735; 85025

== ENCOUNTER 2021-01-30 13:22 | Emergency (ER) | payer MEDICAID ==
[~2021-01-30] VITALS: Ht 152 cm; Wt 95.0 kg
[~2021-01-30 13:22] MED LIST changes: +DOXY1TAB3 PO
--- NOTE | 2021-01-30 15:07 | ED GI ---
General Chief Complaint: OB < 20 WEEKS Stated Complaint: N/V 7 WKS Nursing Triage Note: Pt reports n/v/d for a couple weeks, worse for last 4 days. Pt reports being unable to keep food/drink down for last 2 days. Pt is approx 7 wks . Sepsis Screen: No Definite Risk Source of Information: Patient Exam Limitations: No Limitations History of Present Illness Date Seen by Provider: January 30, 2021 Time Seen by Provider: 14:30 Initial Comments This is a 25-year-old female presents to the ER with complaints of nausea and she is 7 weeks . Patient reports some mild cramping but no vaginal bleeding or spotting. Had vaginal US on 01/05/21 with no definite complicating features detected. States she is able to drink without issue but is having difficulty holding down solid foods. Has follow up with her OB next week. No fever, chills, cough, shortness of breath, nausea, vomiting, diarrhea. Allergies and Home Medications Allergies Coded Allergies: No Known Drug Allergies (Unverified , 05/25/11) Home Medications Doxylamine/Pyridoxine HCl 1 Each Tablet., 2 EACH PO HS Prescribed by: NICOLE GONSALEZ on 01/17/21 3411 Patient Home Medication List Home Medication List Reviewed: Yes Review of Systems Review of Systems Constitutional: no symptoms reported EENTM: No Symptoms Reported Respiratory: No Symptoms Reported Cardiovascular: No Symptoms Reported Gastrointestinal: See HPI Genitourinary: No Symptoms Reported Musculoskeletal: no symptoms reported Skin: no symptoms reported Psychiatric/Neurological: No Symptoms Reported Endocrine: No Symptoms Reported Hematologic/Lymphatic: No Symptoms Reported Past Lqdiptz-Bisrxd-Vphcsd Hx Patient Social History Alcohol Use: Past History Drug of Choice: previous hx prior to marijuana Type Used: Cigarettes 2nd Hand Smoke Exposure: Yes Recent Infectious Disease Expo: No Recent Hopitalizations: No Seasonal Allergies Seasonal Allergies: Yes Past Medical History Surgeries: Yes (oral surgery, ) Bladder Surgery Respiratory: No Cardiac: No Neurological: No : Yes Expected Date of Delivery: Sep 12, 2021 Genitourinary: Yes (BLADDER SURGERY) Gastrointestinal: No Musculoskeletal: Yes (BACK PAIN) Endocrine: No HEENT: No Cancer: No Psychosocial: Yes Anxiety, Depression Integumentary: Yes Eczema Blood Disorders: No Physical Exam Vital Signs Vital Signs - First Documented 01/30/21 14:13 Temp 36.4 Pulse 79 Resp 18 B/P (MAP) 108/73 (85) Pulse Ox 99 O2 Delivery Room Air Capillary Refill : Less Than 3 Seconds Height/Weight/BMI Height: '" Weight: lbs. oz. kg; 41.00 BMI Method: General Appearance: no apparent distress HEENT: PERRL/EOMI, normal ENT inspection, pharynx normal Neck: full range of motion, normal inspection Respiratory: lungs clear, normal breath sounds, no respiratory distress Cardiovascular: normal peripheral pulses, regular rate, rhythm, no murmur Gastrointestinal: normal bowel sounds, soft Extremities: normal range of motion, non-tender, normal inspection, no pedal edema Neurologic/Psychiatric: no motor/sensory deficits, alert, normal mood/affect, oriented x 3 Skin: normal color, warm/dry Progress/Results/Core Measures Results/Orders Lab Results Laboratory Tests Test 01/30/21 14:45 01/30/21 15:10 Range/Units White Blood Count 11.1 H 4.3-11.0 10^3/uL Red Blood Count 4.80 3.80-5.11 10^6/uL Hemoglobin 13.6 11.5-16.0 g/dL Hematocrit 41 35-52 % Mean Corpuscular Volume 85 80-99 fL Mean Corpuscular Hemoglobin 28 25-34 pg Mean Corpuscular Hemoglobin Concent 33 32-36 g/dL Red Cell Distribution Width 13.6 10.0-14.5 % Platelet Count 276 130-400 10^3/uL Mean Platelet Volume 11.8 9.0-12.2 fL Immature Granulocyte % (Auto) 0 % Neutrophils (%) (Auto) 71 42-75 % Lymphocytes (%) (Auto) 21 12-44 % Monocytes (%) (Auto) 7 0-12 % Eosinophils (%) (Auto) 2 0-10 % Basophils (%) (Auto) 1 0-10 % Neutrophils # (Auto) 7.8 1.8-7.8 10^3/uL Lymphocytes # (Auto) 2.3 1.0-4.0 10^3/uL Monocytes # (Auto) 0.7 0.0-1.0 10^3/uL Eosinophils # (Auto) 0.2 0.0-0.3 10^3/uL Basophils # (Auto) 0.1 0.0-0.1 10^3/uL Immature Granulocyte # (Auto) 0.0 0.0-0.1 10^3/uL Sodium Level 136 135-145 MMOL/L Potassium Level 3.9 3.6-5.0 MMOL/L Chloride Level 103 98-107 MMOL/L Carbon Dioxide Level 21 21-32 MMOL/L Anion Gap 12 5-14 MMOL/L Blood Urea Nitrogen 6 L 7-18 MG/DL Creatinine 0.72 0.60-1.30 MG/DL Estimat Glomerular Filtration Rate > 60 BUN/Creatinine Ratio 8 Glucose Level 78 70-105 MG/DL Calcium Level 9.5 8.5-10.1 MG/DL Corrected Calcium 9.3 8.5-10.1 MG/DL Total Bilirubin 0.3 0.1-1.0 MG/DL Aspartate Amino Transf (AST/SGOT) 18 5-34 U/L Alanine Aminotransferase (ALT/SGPT) 15 0-55 U/L Alkaline Phosphatase 79 40-136 U/L Total Protein 8.0 6.4-8.2 GM/DL Albumin 4.2 3.2-4.5 GM/DL Human Chorionic Gonadotropin, Quant 457482 H <5 MIU/ML Urine Color YELLOW Urine Clarity CLEAR Urine pH 7.0 5-9 Urine Specific [place] 1.010 L 1.016-1.022 Urine Protein NEGATIVE NEGATIVE Urine Glucose (UA) NEGATIVE NEGATIVE Urine Ketones NEGATIVE NEGATIVE Urine Nitrite NEGATIVE NEGATIVE Urine Bilirubin NEGATIVE NEGATIVE Urine Urobilinogen 1.0 < = 1.0 MG/DL Urine Leukocyte Esterase NEGATIVE NEGATIVE Urine RBC (Auto) 2+ H NEGATIVE Urine RBC NONE /HPF Urine WBC RARE /HPF Urine Crystals NONE /LPF Urine Bacteria TRACE /HPF Urine Casts NONE /LPF Urine Mucus NEGATIVE /LPF Urine Culture Indicated NO My Orders Orders - MULUGETA MARIA FORESTRY PROFESSOR Cbc With Automated Diff (01/30/21 15:05) Comprehensive Metabolic Panel (01/30/21 15:05) Urinalysis (01/30/21 15:05) Hcg,Quantitative (01/30/21 15:05) Ondansetron Injection (Zofran Injectio (01/30/21 15:45) Medications Given in ED Current Medications Medications Dose Ordered Sig/Jenifer Route Start Time Stop Time Status Last Admin Dose Admin Ondansetron HCl 4 mg ONCE ONCE IVP 01/30/21 15:45 01/30/21 15:46 DC 01/30/21 15:50 4 MG Vital Signs/I&O 01/30/21 01/30/21 14:13 16:45 Temp 36.4 36.2 Pulse 79 71 Resp 18 16 B/P (MAP) 108/73 (85) 108/74 Pulse Ox 99 99 O2 Delivery Room Air Room Air Blood Pressure Mean: 85 Progress Progress Note : Progress Note Patient examined and in no distress. Zofran 4mg IVP given for nausea. No vaginal bleeding at this time. Beta HCG 145,397. Discussed keeping her follow up with Dr. Vargas next week and to return to the ER if her symptoms worsen or if she has vaginal bleeding. Reported improvement of symptoms at time of discharge. Reviewed discharge plan of care and she is agreeable with plan. Departure Impression Primary Impression: Nausea and vomiting during prior to 22 weeks gestation Disposition: 01 HOME, SELF-CARE Condition: Improved Departure-Patient Inst. Decision time for Depature: 16:08 Referrals: JORGE VARGAS MD (PCP/Family) Primary Care Physician Patient Instructions: Nausea and Vomiting of (DC) Add. Discharge Instructions: Plan: 1. Keep follow up with your OB provider as scheduled. 2. Take Vitamin B6 25mg every 8 hours as needed for nausea/vomiting. 3. Drink plenty of fluids to prevent dehydration. 4. Return to ER if you have vaginal bleeding/cramping. 5. Return for any new or worsening symptoms. All discharge instructions reviewed with patient and/or family. Voiced understanding. MULUGETA MARIA FORESTRY PROFESSOR January 30, 2021 15:07
[2021-01-30 15:12] LABS: ALBUMIN 4.2 GM/DL (3.2-4.5)
[2021-01-30 15:13] LABS: CHLORIDE 103 MMOL/L (98-107); POTASSIUM 3.9 MMOL/L (3.6-5.0); SODIUM 136 MMOL/L (135-145)
[2021-01-30 15:14] LABS: BASOPHILS # (AUTO) 0.1 10^3/uL (0.0-0.1); BASOPHILS % (AUTO) 1 % (0-10); CALCIUM 9.5 MG/DL (8.5-10.1); EOSINOPHILS # (AUTO) 0.2 10^3/uL (0.0-0.3); EOSINOPHILS % (AUTO) 2 % (0-10); HEMATOCRIT 41 % (35-52); HEMOGLOBIN 13.6 g/dL (11.5-16.0); LYMPHOCYTES # (AUTO) 2.3 10^3/uL (1.0-4.0); LYMPHOCYTES % (AUTO) 21 % (12-44); MEAN CORPUSCULAR HEMOGLOBIN 28 pg (25-34); MEAN CORPUSCULAR HGB CONC 33 g/dL (32-36); MEAN CORPUSCULAR VOLUME 85 fL (80-99); MEAN PLATELET VOLUME 11.8 fL (9.0-12.2); MONOCYTES # (AUTO) 0.7 10^3/uL (0.0-1.0); MONOCYTES % (AUTO) 7 % (0-12); NEUTROPHILS # (AUTO) 7.8 10^3/uL (1.8-7.8); NEUTROPHILS % (AUTO) 71 % (42-75); PLATELET COUNT 276 10^3/uL (130-400); WHITE BLOOD COUNT 11.1 10^3/uL (4.3-11.0)
[2021-01-30 15:15] LABS: GLUCOSE 78 MG/DL (70-105)
[2021-01-30 15:16] LABS: CARBON DIOXIDE 21 MMOL/L (21-32)
[2021-01-30 15:17] LABS: BILIRUBIN,TOTAL 0.3 MG/DL (0.1-1.0)
[2021-01-30 15:18] LABS: ALKALINE PHOSPHATASE 79 U/L (40-136)
[2021-01-30 15:19] LABS: CREATININE SERUM 0.72 MG/DL (0.60-1.30); GFR ESTIMATED > 60
[2021-01-30 15:20] LABS: BUN/CREATININE RATIO 8
[2021-01-30 15:21] LABS: ALANINE AMINOTRANSFERASE 15 U/L (0-55)
[2021-01-30 15:24] LABS: BILIRUBIN,URINE NEGATIVE (NEGATIVE); CLARITY,URINE CLEAR; COLOR,URINE YELLOW; GLUCOSE, URINE (UA) NEGATIVE (NEGATIVE); KETONES,URINE NEGATIVE (NEGATIVE); LEUKOCYTE ESTERASE ,URINE NEGATIVE (NEGATIVE); NITRITE,URINE NEGATIVE (NEGATIVE); PROTEIN,URINE NEGATIVE (NEGATIVE)
[2021-01-30] MEDS ORDERED: ONDANSETRON 4 MG/2 ML (SDV) Z0FRAN IVP ONE (15:45)
[2021-01-30 16:01] LABS: BACTERIA,URINE TRACE /HPF; WBC,URINE RARE /HPF
[2021-01-30 16:45] VITALS: BP 108/74
== END 2021-01-30 16:45 | disposition home or self-care (01) ==
LOC: EDUNIT# 13:22 → ER 13:24
DX: O21.0 Mild hyperemesis gravidarum (principal); Z3A.00 Weeks of gestation of pregnancy not specified; Z77.22 Contact with and (suspected) exposure to environmental tobacco smoke (acute) (chronic)
CPT/HCPCS: 36415; 80053; 81000; 84702; 85025

== ENCOUNTER 2021-04-07 22:05 | Emergency (ER) | payer MEDICAID ==
[~2021-04-07] VITALS: Ht 153 cm; Wt 90.7 kg
[2021-04-07 22:08] VITALS: BP 99/53
[2021-04-07] MEDS ORDERED: AMOX500C2 PO (22:17)
--- NOTE | 2021-04-07 22:17 | ED EENT ---
History of Present Illness General Chief Complaint: Dental Problems/Pain Stated Complaint: L SIDE FACE/DENTAL PAIN Source: patient Exam Limitations: no limitations History of Present Illness Date Seen by Provider: Apr 07, 2021 Time Seen by Provider: 22:05 Initial Comments Patient to the ER by private conveyance with chief complaint of dental pain and associated with a cracked tooth and extensive dental caries in her left lower mandible. Started yesterday. She is taking Tylenol only as she is presently. She is known to Dr. Vargas for primary care. She has not sought out help from a dentist nor is she on antibiotics. Allergies and Home Medications Allergies Coded Allergies: No Known Drug Allergies (Unverified , 05/25/11) Home Medications Amoxicillin 500 Mg Capsule, 500 MG PO TID Prescribed by: COLIN VILLARREAL on 04/07/212216 Chlorhexidine Gluconate 473 Ml Mouthwash, 30 ML MM BID Prescribed by: COLIN VILLARREAL on 04/07/212219 Doxylamine/Pyridoxine HCl 1 Each Tablet.dr, 2 EACH PO HS Prescribed by: NICOLE GONSALEZ on 01/17/21 2337 Patient Home Medication List Home Medication List Reviewed: Yes Review of Systems Review of Systems Constitutional: No chills, No diaphoresis Eyes: Denies Blindness, Denies Blurred Vision Ears: Denies Dizziness, Denies Pain Nose: denies clots, denies congestion Mouth: denies clots, denies loose teeth; pain, swelling Throat: denies pain, denies swelling Past Ldaoaxm-Rdquju-Uoiwss Hx Seasonal Allergies Seasonal Allergies: Yes Past Medical History Surgeries: Yes (oral surgery, ) Bladder Surgery Respiratory: No Cardiac: No Neurological: No Genitourinary: Yes (BLADDER SURGERY) Gastrointestinal: No Musculoskeletal: Yes (BACK PAIN) Endocrine: No HEENT: No Cancer: No Psychosocial: Yes Anxiety, Depression Integumentary: Yes Eczema Blood Disorders: No Physical Exam Vital Signs Vital Signs - First Documented 04/07/21 22:08 Temp 35.8 Pulse 89 Resp 18 B/P (MAP) 99/53 (68) Pulse Ox 99 O2 Delivery Room Air Height, Weight, BMI Height: '" Weight: lbs. oz. kg; 41.00 BMI Method: General Appearance: WD/WN, no apparent distress Eyes: bilateral eye normal inspection, bilateral eye PERRL, bilateral eye EOMI Ears: bilateral ear auricle normal, bilateral ear canal normal, bilateral ear TM normal Nose: normal inspection; No discharge Mouth/Throat: No pharynx normal, No dental tenderness; other (Gingival swelling and inflammation. Extensive dental caries with cracked molars on the left lower teeth. ) Neck: non-tender, full range of motion, normal inspection Cardiovascular: normal peripheral pulses, regular rate, rhythm Respiratory: no respiratory distress, no accessory muscle use Progress/Results/Core Measures Results/Orders My Orders Orders - COLIN VILLARREAL Lidocaine 2% Viscous 15 Ml (Xylocaine Vi (04/07/21 22:30) Vital Signs/I&O 04/07/21 22:08 Temp 35.8 Pulse 89 Resp 18 B/P (MAP) 99/53 (68) Pulse Ox 99 O2 Delivery Room Air Progress Progress Note : Time: 22:21 Progress Note Viscous lidocaine, amoxicillin, topical heat and Tylenol. Departure Impression Primary Impression: Dental caries Additional Impressions: Dental abscess Gingivitis Disposition: 01 HOME, SELF-CARE Condition: Stable Departure-Patient Inst. Decision time for Depature: 22:16 Referrals: JORGE VARGAS MD (PCP/Family) Primary Care Physician Patient Instructions: Tooth Abscess (DC) Add. Discharge Instructions: Warm moist heat applied to the face. Tylenol 1000 mg every 8 hours as necessary for pain. Viscous lidocaine 5 mL applied to gauze over the tooth in question every 6 hours as necessary for pain relief. Amoxicillin 1 capsule 3 times a day for the next week to reduce inflammation and infection in the tooth. Follow-up with a dentist in the next 1 to 2 weeks. All discharge instructions reviewed with patient and/or family. Voiced understanding. Scripts Chlorhexidine Gluconate (Chlorhexidine Gluconate) 473 Ml Mouthwash 30 ML MM BID for 7 Days, #473 ML 0 Refills Prov: COLIN VILLARREAL 04/07/21 Amoxicillin (Amoxicillin) 500 Mg Capsule 500 MG PO TID for 7 Days, #21 CAP 0 Refills Prov: COLIN VILLARREAL 04/07/21 COLIN VILLARREAL Apr 07, 2021 22:17
[2021-04-07] MEDS ORDERED: NFCHLORHGL MM (22:20)
[2021-04-07] MEDS ORDERED: LIDOCAINE 2% VISCOUS 15 ML UDC PO ONE (22:30)
== END 2021-04-07 22:23 | disposition home or self-care (01) ==
LOC: EDUNIT# 22:05 → ER 22:06
DX: O99.619 Diseases of the digestive system complicating pregnancy, unspecified trimester (principal); K04.7 Periapical abscess without sinus; K03.81 Cracked tooth; K02.9 Dental caries, unspecified; K05.10 Chronic gingivitis, plaque induced; Z3A.00 Weeks of gestation of pregnancy not specified
CPT/HCPCS: 99283

== ENCOUNTER 2021-08-17 09:19 | Outpatient (CLI) | payer MEDICAID ==
[~2021-08-17] VITALS: Ht 152.4 cm; Wt 94.9 kg
[~2021-08-17 09:19] MED LIST changes: +AMOX500C2 PO; +NFCHLORHGL MM
[2021-08-17 09:58] VITALS: BP 100/70
[2021-08-17 09:58] LABS: BILIRUBIN,URINE NEGATIVE (NEGATIVE); CLARITY,URINE CLEAR; COLOR,URINE YELLOW; GLUCOSE, URINE (UA) NEGATIVE (NEGATIVE); KETONES,URINE NEGATIVE (NEGATIVE); LEUKOCYTE ESTERASE ,URINE NEGATIVE (NEGATIVE); NITRITE,URINE NEGATIVE (NEGATIVE); PH,URINE 6.5 (5-9); PROTEIN,URINE NEGATIVE (NEGATIVE)
[2021-08-17 10:02] VITALS: BP 100/70
[2021-08-17 10:11] LABS: RBC,URINE RARE /HPF
[2021-08-17 10:12] LABS: BACTERIA,URINE TRACE /HPF; SQUAMOUS EPITHELIAL CELL,UR 0-2 /HPF
== END 2021-08-17 11:38 | disposition home or self-care (01) ==
LOC: WSo 09:19 → LDRP 09:20 → WSo 11:38
PROVIDERS: ATTEND Family Medicine
DX: O62.9 Abnormality of forces of labor, unspecified (principal); Z3A.36 36 weeks gestation of pregnancy
CPT/HCPCS: 81000; G0463; 99213

== ENCOUNTER 2021-08-21 17:37 | Outpatient (CLI) | payer MEDICAID ==
[2021-08-21 17:58] VITALS: BP 122/67
[2021-08-21 18:00] LABS: BILIRUBIN,URINE NEGATIVE (NEGATIVE); CLARITY,URINE CLEAR; COLOR,URINE YELLOW; GLUCOSE, URINE (UA) NEGATIVE (NEGATIVE); KETONES,URINE NEGATIVE (NEGATIVE); LEUKOCYTE ESTERASE ,URINE NEGATIVE (NEGATIVE); NITRITE,URINE NEGATIVE (NEGATIVE); PROTEIN,URINE NEGATIVE (NEGATIVE)
[2021-08-21 18:02] VITALS: BP 122/67
[2021-08-21 18:07] LABS: BACTERIA,URINE NEGATIVE /HPF; RENAL EPITHELIAL CELLS,URINE 0-2 /HPF; SQUAMOUS EPITHELIAL CELL,UR 0-2 /HPF
--- NOTE | 2021-08-22 08:18 | Physician Query-Final Dx ---
JUAN PABLO,08/22/21 0817: Clinic Account Progress/Dx Physician Query: Please give diagnosis Please include # weeks gestation Date of Service Aug 21, 2021 at 17:37 SARITHA WILL MD 08/22/21 0830: Clinic Account Progress/Dx DIAGNOSIS: Diagnosis 36 weeks gestation Back pain Rare contractions JUAN PABLO,SepAug 22, 2021 08:17 SARITHA WILL MD Aug 22, 2021 08:30
== END 2021-08-21 19:20 | disposition home or self-care (01) ==
LOC: WSo 17:37 → LDRP 17:37 → WSo 19:20
PROVIDERS: ATTEND Family Medicine
DX: O26.893 Other specified pregnancy related conditions, third trimester (principal); O62.9 Abnormality of forces of labor, unspecified; M54.9 Dorsalgia, unspecified; Z3A.36 36 weeks gestation of pregnancy
CPT/HCPCS: 81000; G0463; 99213

== ENCOUNTER 2021-08-25 19:11 | Outpatient (CLI) | payer MEDICAID ==
[~2021-08-25] VITALS: Ht 152.4 cm; Wt 96.3 kg
[2021-08-25] MEDS ORDERED: ACET325C7 PO (19:20)
[2021-08-25] MEDS ORDERED: PREN-102 PO (19:20)
[2021-08-25 19:23] VITALS: BP 130/64
[2021-08-25 19:25] VITALS: BP 130/64
[2021-08-25 19:37] VITALS: BP 122/63
[2021-08-25 19:45] LABS: BILIRUBIN,URINE NEGATIVE (NEGATIVE); CLARITY,URINE CLEAR; COLOR,URINE YELLOW; GLUCOSE, URINE (UA) NEGATIVE (NEGATIVE); KETONES,URINE NEGATIVE (NEGATIVE); LEUKOCYTE ESTERASE ,URINE NEGATIVE (NEGATIVE); NITRITE,URINE NEGATIVE (NEGATIVE); PROTEIN,URINE NEGATIVE (NEGATIVE)
[2021-08-25 19:59] LABS: BACTERIA,URINE FEW /HPF; WBC,URINE 0-2 /HPF
[2021-08-25 20:37] VITALS: BP 120/71
== END 2021-08-25 21:02 | disposition home or self-care (01) ==
LOC: WSo 19:11
PROVIDERS: ATTEND Family Medicine
DX: O62.9 Abnormality of forces of labor, unspecified (principal); Z3A.37 37 weeks gestation of pregnancy
CPT/HCPCS: 81000; 87088; G0463; 99213

== ENCOUNTER 2021-09-04 06:30 | Inpatient (IN) | payer MEDICAID ==
[2021-09-04] VITALS (9 sets, daily range): BP systolic 78–126; BP diastolic 54–79
[~2021-09-04] VITALS: Ht 152.4 cm; Wt 97.2 kg
[~2021-09-04 06:30] MED LIST changes: +ACET325C7 PO; +PREN-102 PO
--- OUTSIDE RECORDS SUMMARY | 2021-09-04 06:50 | XMS REPORT | Clinical Summary ---
Author Author [facility] Organization [facility] Address Unknown Phone Unavailable Care Team Providers Care Patient Service Technician Pst Name Role Phone PCP Unavailable Allergies Comments Active Allergy Reactions Severity Noted Date Feline 04/20/2017 Latex, Natural Rubber Rash Low 04/20/20 17 Medications End Date Status Medication Sig Dispensed Refills Start Date Active azithromycin (ZITHROMAX) Take 250 mg 0 250 MG tablet by mouth daily. Active albuterol Inhale 2 1 Inhaler 0 (PROAIR/PROVENTIL/VENTOLI puffs every 6 7 N) 90 mcg/actuation HFA (six) hours inhaler as needed for wheezing. Active montelukast (SINGULAIR) Take 1 tablet 30 tablet 0 10 mg tablet (10 mg total) 7 by mouth nightly. Active Problems Estimated Date of Delivery Comments Yes 09/13/2017 No additional problems on file Social History Date Tobacco Use Types Packs/Day Years Used Current Every Day Smoker 0.5 Tobacco Cessation: Counseling Given: Yes Comments Alcohol Use Standard Drinks/Week No 0 (1 standard drink = 0.6 o z pure alcohol) Estimated Date of Delivery Comments Yes 09/13/2017 Sex Assigned at Date Recorded Not on file Last Filed Vital Signs Reading Time Taken Comments Vital Sign 98/67 05/22/2017 1:45 PM CDT Blood Pressure 77 05/22/2017 1:45 PM CDT Pulse 37.1 C (98.7 F) 05/22/2017 10:22 AM CDT Temperature 14 05/22/2017 1:45 PM CDT Respiratory Rate 95% 05/22/2017 1:45 PM CDT Oxygen Saturation - - Inhaled Oxygen Concentration 77.6 kg (171 lb) 05/22/2017 10:22 AM CDT Weight 152.4 cm (5') 05/22/2017 10:22 AM CDT Height 33.4 05/22/2017 10:22 AM CDT Body Mass Index Plan of Treatment Health Maintenance Due Date Last Done Comments Td/Tdap# 1995 Tobacco Cessation 1995 Counseling # HPV Vaccine (1 - 2-dose 2006 series) Cervical Cancer Screening 2016 via Pap Smear Influenza Vaccine (#1) 2021 Pneumococcal Vaccine: Aged Out No longer eligib le based on patient's age to Pediatrics (0 to 5 Years) complete this topic and At-Risk Patients (6 to 64 Years) Results Not on filefrom Last 3 Months Advance Directives For more information, please contact: [phone] Patient Ethernet Network Architect Explanation Type Date Recorded Advance Directives and Living Will Power of Terrazzo Mechanic Helper
[2021-09-04] MEDS ORDERED: D5 LR IV SOLUTION 1,000 ML IV ONE (07:28)
[2021-09-04] MEDS ORDERED: MINERAL OIL CONCENTRATE 99.9% 15 ML UDC TOP PRN (08:30)
[2021-09-04] MEDS ORDERED: D5 LR IV SOLUTION 1,000 ML IV SCH (08:30)
[2021-09-04] MEDS ORDERED: OXYTOCIN PRE-MIX DRIP 500 ML IV SCH ×2 (08:30→14:30)
[2021-09-04 08:44] LABS: BASOPHILS % (AUTO) 0 % (0-10); EOSINOPHILS # (AUTO) 0.2 10^3/uL (0.0-0.3); EOSINOPHILS % (AUTO) 2 % (0-10); HEMATOCRIT 28 % (35-52); HEMOGLOBIN 9.1 g/dL (11.5-16.0); LYMPHOCYTES # (AUTO) 2.1 10^3/uL (1.0-4.0); LYMPHOCYTES % (AUTO) 22 % (12-44); MEAN CORPUSCULAR HEMOGLOBIN 28 pg (25-34); MEAN CORPUSCULAR HGB CONC 33 g/dL (32-36); MEAN CORPUSCULAR VOLUME 86 fL (80-99); MEAN PLATELET VOLUME 11.3 fL (9.0-12.2); MONOCYTES # (AUTO) 0.5 10^3/uL (0.0-1.0); MONOCYTES % (AUTO) 5 % (0-12); NEUTROPHILS # (AUTO) 6.7 10^3/uL (1.8-7.8); NEUTROPHILS % (AUTO) 70 % (42-75); PLATELET COUNT 256 10^3/uL (130-400); WHITE BLOOD COUNT 9.5 10^3/uL (4.3-11.0)
--- NOTE | 2021-09-04 09:06 | History & Physical-OB ---
OB - Chief Complaint & HPI Date/Time Date of Admission: Date of Admission: Sep 04, 2021 at 06:30 Date seen by a Provider: Sep 04, 2021 Time Seen by a Provider: 09:01 Chief Complaint/History OB-Reason for Admission/Chief: Induction of Labor Hx : 2 Hx Para: 1 Gestational Age in Weeks: 38 Gestational Age in Days: 6 History of Labs O neg, Ab + Anti-D, Rub Imm HIV/RPR/HepB/C NR GC/chyl neg Normal 1 hr GTT GBS neg Allergies and Home Medications Allergies Coded Allergies: latex (Verified Allergy, Unknown, 08/17/21) Patient Home Medication List Home Medication List Reviewed: Yes Acetaminophen (Tylenol) 325 Mg Capsule, 1,000 MG PO PRN, (Reported) Entered as Reported by: ITALO PATEL on 08/25/211919 Vits #93/Iron Fum/FA ( Formula Tablet) 1 Each Tablet, 1 EACH PO DAILY, (Reported) Entered as Reported by: ITALO PATEL on 08/25/211919 OB - History Hx of Present Care: Yes Ultrasounds: Normal mid trimester US Obstetrical Complications: None Medical Complications: Other (Obesity) Obstetrical History Hx : 2 Hx Para: 1 Number of Living Children: 1 Patient Past Medical History Obesity Social History/Family History Smoking Cessation: Current every day smoker 2nd Hand Smoke Exposure: Yes Immunizations Tetanus Booster (TDap): Less than 5yrs (06/28/21) Date of Influenza Vaccine: Jun 15, 2021 Rubella: immune RPR/VDRL: Negative GBS Status: Negative HBsAG: Negative OB - Admission Exam Physical Exam HEENT: NCAT Heart: Rhythm Normal Lungs: Clear Abdomen: Gravid Cervical Dilatation: 5cm Effacement: 100% Station: -1 Membranes: Intact Accelerations: Accelerations Present Decelerations: No Decelerations Contractions on Admission: >10 Minutes Apart Mireles Scoring Tool (Modified) Dilation (cm): >5cm (3) Effacement (%): 80-100% (3) Descent/Station: -1,0 (2) Cervix Consistency: Medium(1) Cervix Position: Middle/Mid-Position (1) Add 1 point for: Each previous vaginal delivery (1) Mireles Score: 11 Labs Laboratory Tests Test 09/04/21 07:46 Range/Units White Blood Count 9.5 4.3-11.0 10^3/uL Red Blood Count 3.21 L 3.80-5.11 10^6/uL Hemoglobin 9.1 L 11.5-16.0 g/dL Hematocrit 28 L 35-52 % Mean Corpuscular Volume 86 80-99 fL Mean Corpuscular Hemoglobin 28 25-34 pg Mean Corpuscular Hemoglobin Concent 33 32-36 g/dL Red Cell Distribution Width 13.2 10.0-14.5 % Platelet Count 256 130-400 10^3/uL Mean Platelet Volume 11.3 9.0-12.2 fL Immature Granulocyte % (Auto) 1 % Neutrophils (%) (Auto) 70 42-75 % Lymphocytes (%) (Auto) 22 12-44 % Monocytes (%) (Auto) 5 0-12 % Eosinophils (%) (Auto) 2 0-10 % Basophils (%) (Auto) 0 0-10 % Neutrophils # (Auto) 6.7 1.8-7.8 10^3/uL Lymphocytes # (Auto) 2.1 1.0-4.0 10^3/uL Monocytes # (Auto) 0.5 0.0-1.0 10^3/uL Eosinophils # (Auto) 0.2 0.0-0.3 10^3/uL Basophils # (Auto) 0.0 0.0-0.1 10^3/uL Immature Granulocyte # (Auto) 0.1 0.0-0.1 10^3/uL OB - Assessment/Plan/Diagnosis Assessment Assessment: induction of labor Admission Dx Third Trimester 38 week gestation Obesity in Admission Status: Inpatient Order (span 2 midnights) Reason for Inpatient Admission: Labor Plan Other Plan 26 yo @ 38.6 wga here for IOL for advance dilation Plan - AROM clear 0845 - Patient desires epidural - Augment with pitocin - GBS neg - RH neg status in mother Copy Copies To 1: JORGE MCCOY MD, HOLLY R MD Sep 04, 2021 09:06
[2021-09-04] MEDS ORDERED: fentaNYL 2 mcg/ml BUPIVA 0.125 100 ML ONE (09:37)
[2021-09-04] MEDS ORDERED: EPIDURAL (fentaNYL 2 MCG/ML BUPIVA 0.125%)100 ML BAG EPI SCH (10:15)
[2021-09-04] MEDS ORDERED: ONDANSETRON 4 MG/2 ML (SDV) Z0FRAN IV PRN ×2 (10:15)
[2021-09-04] MEDS ORDERED: NALOXONE 0.4 MG/ML 1 ML (NARCAN) VIAL IV PRN ×5 (10:15→14:30)
[2021-09-04] MEDS ORDERED: diphenhydrAMINE 50 MG/ML INJ (BENADRYL) IV PRN ×2 (10:15)
[2021-09-04] MEDS ORDERED: METOCLOPRAMIDE INJ 10 MG/2 ML (REGLAN) IV PRN ×2 (10:15)
[2021-09-04] MEDS ORDERED: LACTATED RINGERS 1,000 ML IV SCH (10:15)
[2021-09-04] MEDS ORDERED: FAMOTIDINE 20MG/2ML IV (PEPCID) ONE (14:14)
[2021-09-04] MEDS ORDERED: METOCLOPRAMIDE INJ 10 MG/2 ML (REGLAN) ONE (14:14)
[2021-09-04] MEDS ORDERED: CITRIC ACID/SOB CIT (BICITRA) 30 ML UDC ONE (14:14)
--- NOTE | 2021-09-04 14:14 | Labor Progress Note ---
Labor Progress Note Labor Progress Note Date Seen by Provider: Sep 04, 2021 Time Seen by Provider: 14:14 Subjective: Called to room by nurse because patient was complete. Patient feeling like she needs to push. Nurse noted meconium on last check. In room with patient set up and I checked and no longer felt coronal sutures and was concerned for breech presentation. Breech presentation was confirmed and Dr Hi was notified and came to evaluate the patient. Call for STAT C section was made. Assessment/Plan: Jocelyn Dodson is a (26 /Para 2 / 1,Gestational Age (wks)38.6 here for IOL for advanced dilation Reactive FM Breech presentation Stat C section by Dr Hi Vitals - Labs Vital Signs - I&O Vital Signs Date Time Temp Pulse Resp B/P (MAP) Pulse Ox O2 Delivery O2 Flow Rate FiO2 09/04/21 07:40 36.3 81 20 98 Room Air Labs Laboratory Tests 09/04/21 07:46: White Blood Count 9.5, Red Blood Count 3.21L, Hemoglobin 9.1L, Hematocrit 28L, Mean Corpuscular Volume 86, Mean Corpuscular Hemoglobin 28, Mean Corpuscular Hemoglobin Concent 33, Red Cell Distribution Width 13.2, Platelet Count 256, Mean Platelet Volume 11.3, Immature Granulocyte % (Auto) 1, Neutrophils (%) (Auto) 70, Lymphocytes (%) (Auto) 22, Monocytes (%) (Auto) 5, Eosinophils (%) (Auto) 2, Basophils (%) (Auto) 0, Neutrophils # (Auto) 6.7, Lymphocytes # (Auto) 2.1, Monocytes # (Auto) 0.5, Eosinophils # (Auto) 0.2, Basophils # (Auto) 0.0, Immature Granulocyte # (Auto) 0.1 JORGE MCCOY MD Sep 04, 2021 14:14
[2021-09-04] MEDS ORDERED: KETOROLAC 30 MG/ML VIAL ONE (14:15)
[2021-09-04] MEDS ORDERED: MIDAZOLAM 2 MG/2 ML (VERSED) VIAL ONE (14:15)
[2021-09-04] MEDS ORDERED: fentaNYL INJ 100 MCG/2 ML AMP ONE (14:15)
[2021-09-04] MEDS ORDERED: ONDANSETRON 4 MG/2 ML (SDV) Z0FRAN ONE (14:15)
[2021-09-04] MEDS ORDERED: SUCCINYLCHOLINE INJ 100 MG/5 ML SYR/VIAL ONE (14:15)
[2021-09-04] MEDS ORDERED: proPOfol 200 MG/20 ML (DIPRIVAN) VIAL IV ONE (14:15)
[2021-09-04] MEDS ORDERED: OXYTOCIN PRE-MIX DRIP 1,000 ML IV ONE (14:18)
[2021-09-04] MEDS ORDERED: diphenhydrAMINE 50 MG/ML INJ (BENADRYL) ONE (14:19)
[2021-09-04] MEDS ORDERED: ceFAZolin 2 GM IV Premixed 50 ML ONE (14:20)
[2021-09-04] MEDS ORDERED: TETANUS,DIPTH,PERTUSS P/F (BOOSTRIX) 0.5 ML VIAL IM SCH (14:30)
[2021-09-04] MEDS ORDERED: MEASLES,MUMPS,RUBELLA 1 EA INJ SC SCH (14:30)
[2021-09-04] MEDS ORDERED: ONDANSETRON 4 MG/2 ML (SDV) Z0FRAN IVP PRN (14:30)
[2021-09-04] MEDS ORDERED: PHENYLEPHRINE 100 MCG/ML 10 ML (ANESTHESIA) SYR ONE (14:43)
[2021-09-04] MEDS ORDERED: HYDROmorphone 2 MG/ML VIAL (DILAUDID) ONE (14:59)
[2021-09-04] MEDS: KETOROLAC 30 MG/ML VIAL IV SCH ×2 (15:00→21:02)
[2021-09-04] MEDS ORDERED: SEVOFLURANE (ULTANE) 15 ML INHAL SOLN ONE (15:03)
[2021-09-04] MEDS ORDERED: HYDROmorphone 2 MG/ML VIAL (DILAUDID) IV ONE (15:30)
[2021-09-04] MEDS: HYDROcodone/APAP 5 MG/325 MG (LORTAB) TAB PO PRN (17:59)
[2021-09-04] MEDS: DOCUSATE SODIUM 100 MG (COLACE) CAP PO SCH (21:02)
[2021-09-04] MEDS: CATHETER FLUSH 10 ML SYR IV SCH (21:03)
[2021-09-04] MEDS ORDERED: CATHETER FLUSH 10 ML SYR IV SCH (22:00)
[2021-09-05 00:11] VITALS: BP 120/68
[2021-09-05] MEDS: HYDROcodone/APAP 5 MG/325 MG (LORTAB) TAB PO PRN ×4 (00:11→18:35)
--- NOTE | 2021-09-05 00:49 | OPERATIVE REPORT ---
DATE OF SERVICE: PREOPERATIVE DIAGNOSES: 1. A 26-year-old G2, P1 at 38 weeks and 6 days gestation. 2. Complete cervical dilation. 3. Shameka breech presentation. POSTOPERATIVE DIAGNOSES: 1. A 26-year-old G2, P1 at 38 weeks and 6 days gestation. 2. Complete cervical dilation. 3. Shameka breech presentation. PROCEDURE: Emergency primary low transverse section. SURGEON: Brain Hi DO ANESTHESIA: General endotracheal. ESTIMATED BLOOD LOSS: 800 mL. URINE OUTPUT: 30 mL clear at the end of the procedure. FLUIDS: 1600 mL lactated Ringer's solution. FINDINGS: A live female weighing 5 pounds 15 ounces, Apgars of 8 and 9. Grossly normal appearing uterus, bilateral fallopian tubes and ovaries. SPECIMEN SENT: Placenta. INDICATIONS FOR PROCEDURE: I was contacted urgently as I was delivering next door about a patient of Dr. Vargas, who was found to be in the shameka breech presentation and complete dilation. The patient was having discomfort and there were variable heart rate decelerations and meconium noted at evaluation. I presented myself urgently to her room to evaluate the patient. The buttocks were still at a -1 to -2 station. Due to the emergent situation, discussed with the patient proceeding with emergency and discussed with her the risks briefly as we emergently proceeded with delivery. Risk of this procedure was reviewed with the patient including risk of bleeding, infection, damage to surrounding structures including, but not limited to bowel, bladder, ureter, kidneys, possible need for operation, postoperative complications that may occur, risk from anesthesia and even . However, risk from a breech vaginal delivery we discussed head entrapment . The patient wished to proceed with primary section. Once consent was obtained, the patient was taken to the operating room. OPERATIVE REPORT IN DETAIL: Once in the operating room, the patient was placed in supine position with leftward tilt, prepped and draped in normal sterile fashion. A timeout was performed. General anesthesia was administered and once airway access was obtained, I proceeded with making a Pfannenstiel skin incision with a knife and carried down to the underlying fascia using the knife excision using blunt traction. The rectus muscles were dissected down the midline using blunt traction, which exposed the peritoneum, which I entered bluntly and extended using blunt traction. Jose Enrique ring retractor was within the peritoneal incision, which offers excellent lateral sidewall retraction. I identified the lower uterine segment, which was found to be thinned out. I make a low transverse incision to the vesicouterine peritoneum until I am able to go through the uterine muscle and extended laterally and superiorly with traction. The infant was found in the breech presentation. With gentle fundal pressure, the infant's buttocks was elevated up the incision where the buttocks, legs and arms were delivered. The was placed in the downward facing position and delivered by lifting the body up and flexing the head through the incision. The nares and oropharynx were then bulb suctioned. The infant was then brought to the operative field where the cord was doubly clamped and cut and infant was handed off to Dr. Vargas, who was present for attendance. Cord blood was collected, 3-vessel cord with intact placenta was delivered spontaneously thereafter. IV Pitocin was initiated to facilitate uterine contraction. Uterine fundus confirmed by manual massage. The uterus was then exteriorized and cleared of all endometrial clots and debris. There is an extension of the uterine incision cephalad, which is first repaired due to significant bleeding using 0 Vicryl suture in a running locked fashion. This seems to subside the bleeding at this area. I then closed the remainder of the uterine incision using 0 Vicryl suture in running locked fashion. Second layer of imbricating 0 Monocryl was placed. Excellent hemostasis was noted after doing this. I then packed the left apex of the incision where the cervical extension was noted with Surgicel after I copiously irrigated the pelvis using normal saline. There was no active bleeding noted from any of my dissection planes at that point. Interceed was used to cover the entirety of the incision, at which point I removed the Jose Enrique ring retractor and proceeded with closing the peritoneum using 3-0 Vicryl suture in running fashion. The rectus muscle reapproximated using 3-0 Vicryl suture in interrupted fashion. The fascia was reapproximated using 0 Vicryl suture in running fashion and the skin was reapproximated using carly. The patient tolerated the procedure well and sent to recovery area in stable condition. Lap and sponge counts were correct at the end of the procedure. Instrument counts correct as well. Two grams of Ancef given preoperatively for infection prophylaxis. Job ID: [id number] DocumentID: [id number] Dictated Date: 09/04/2021 15:18:49 Party Plan Sales Consultant Date: 09/05/2021 00:48:42 Dictated By: DO MEHRAN NIÑO
[2021-09-05 02:56] VITALS: BP 105/57
[2021-09-05] MEDS: KETOROLAC 30 MG/ML VIAL IV SCH ×2 (02:56→09:58)
[2021-09-05 06:12] LABS: BASOPHILS % (AUTO) 0 % (0-10); EOSINOPHILS % (AUTO) 0 % (0-10); HEMATOCRIT 22 % (35-52); HEMOGLOBIN 7.3 g/dL (11.5-16.0); LYMPHOCYTES # (AUTO) 1.8 10^3/uL (1.0-4.0); LYMPHOCYTES % (AUTO) 8 % (12-44); MEAN CORPUSCULAR HEMOGLOBIN 28 pg (25-34); MEAN CORPUSCULAR HGB CONC 33 g/dL (32-36); MEAN CORPUSCULAR VOLUME 86 fL (80-99); MEAN PLATELET VOLUME 11.3 fL (9.0-12.2); MONOCYTES # (AUTO) 1.2 10^3/uL (0.0-1.0); MONOCYTES % (AUTO) 6 % (0-12); NEUTROPHILS # (AUTO) 17.8 10^3/uL (1.8-7.8); NEUTROPHILS % (AUTO) 85 % (42-75); PLATELET COUNT 275 10^3/uL (130-400)
--- NOTE | 2021-09-05 08:34 | Anesthesia-General Post-Op ---
General Patient Condition Mental Status/LOC: Same as Preop Cardiovascular: Satisfactory Nausea/Vomiting: Absent Respiratory: Satisfactory Pain: Controlled Complications: Absent Post Op Complications Complications None Follow Up Care/Instructions Patient Instructions None needed. Anesthesia/Patient Condition Patient Condition Patient is doing well, no complaints, stable vital signs, no apparent adverse anesthesia problems. No complications reported per nursing. D/C home per [facility] Criteria: Yes GURU TSE CRNA Sep 05, 2021 08:34
--- NOTE | 2021-09-05 08:39 | Postpartum Progress Note ---
Note Note Day # 1 Subjective: Patient is without complaints. Ambulating, voiding. Tolerating a regular diet without nausea or vomiting. Normal lochia. Pain is well controlled with oral pain medications. Objective: [ Physical Exam: General - Alert and oriented, no apparent distress Abdomen - Soft, appropriately tender to palpation, non-distended, fundus firm at umbilicus Extremities - no edema, negative Anayeli's bilaterally Incision- c/d/i Assessment: POD 1 PLTCS Acute blood loss anemia Plan: Routine care. Encourage breast feeding. Encourage ambulation. Ferrous sulfate supplementation. Plan for discharge tomorrow Vitals - Labs Vital Signs - I&O Vital Signs Date Time Temp Pulse Resp B/P (MAP) Pulse Ox O2 Delivery O2 Flow Rate FiO2 09/05/21 02:56 37.0 88 20 105/57 (73) 96 Room Air 09/05/21 00:11 36.8 93 20 120/68 (85) 96 Room Air 09/04/21 21:03 36.6 91 20 119/64 (82) 97 Room Air 09/04/21 20:25 Room Air 09/04/21 18:05 36.7 86 20 110/61 (77) Room Air 09/04/21 15:50 Room Air 09/04/21 15:49 36.7 20 125/67 (86) 99 Room Air 09/04/21 15:40 20 126/67 (86) 100 Room Air 09/04/21 15:39 Room Air 09/04/21 15:30 20 123/74 (90) 99 09/04/21 15:30 Room Air 09/04/21 15:20 20 117/68 (84) 99 Room Air 09/04/21 15:15 Room Air 09/04/21 15:10 20 78/54 (62) 99 Room Air 09/04/21 15:03 36.4 24 98/64 (75) 99 Room Air 09/04/21 15:03 Room Air I & O 09/05/21 07:00 Intake Total 1250 ml Output Total 1690 ml Balance -440 ml Labs Laboratory Tests 09/05/21 05:35: White Blood Count 21.0H, Red Blood Count 2.59L, Hemoglobin 7.3L, Hematocrit 22L, Mean Corpuscular Volume 86, Mean Corpuscular Hemoglobin 28, Mean Corpuscular Hemoglobin Concent 33, Red Cell Distribution Width 13.2, Platelet Count 275, Mean Platelet Volume 11.3, Immature Granulocyte % (Auto) 1, Neutrophils (%) (Auto) 85H, Lymphocytes (%) (Auto) 8L, Monocytes (%) (Auto) 6, Eosinophils (%) (Auto) 0, Basophils (%) (Auto) 0, Neutrophils # (Auto) 17.8H, Lymphocytes # (Auto) 1.8, Monocytes # (Auto) 1.2H, Eosinophils # (Auto) 0.0, Basophils # (Auto) 0.0, Immature Granulocyte # (Auto) 0.2H DEVORA ROSENBERG DO Sep 05, 2021 8:39 am
[2021-09-05] MEDS ORDERED: IBUP-844 PO (08:42)
[2021-09-05] MEDS ORDERED: DOCU100C37 PO (08:42)
[2021-09-05] MEDS ORDERED: ACHD5005 PO (08:42)
[2021-09-05] MEDS: DOCUSATE SODIUM 100 MG (COLACE) CAP PO SCH ×2 (09:57→22:15)
[2021-09-05] MEDS: CATHETER FLUSH 10 ML SYR IV SCH (09:58)
[2021-09-05 10:03] VITALS: BP 118/73
[2021-09-05 14:01] VITALS: BP 121/71
[2021-09-05] MEDS: IBUPROFEN 600 MG (MOTRIN) TAB PO SCH ×2 (16:55→22:16)
[2021-09-05 20:51] VITALS: BP 117/73
[2021-09-05] MEDS ORDERED: LACTATED RINGERS 1,000 ML IV PRN ×2 (21:15)
[2021-09-05] MEDS ORDERED: METOCLOPRAMIDE INJ 10 MG/2 ML (REGLAN) IV ONE (21:15)
[2021-09-05] MEDS ORDERED: FAMOTIDINE 20MG/2ML IV (PEPCID) IV ONE (21:15)
[2021-09-06] MEDS: HYDROcodone/APAP 5 MG/325 MG (LORTAB) TAB PO PRN ×2 (01:06→11:13)
[2021-09-06 04:06] VITALS: BP 101/58
[2021-09-06] MEDS: IBUPROFEN 600 MG (MOTRIN) TAB PO SCH ×2 (04:06→11:13)
[2021-09-06 08:19] VITALS: BP 107/66
[2021-09-06] MEDS: DOCUSATE SODIUM 100 MG (COLACE) CAP PO SCH (08:24)
== END 2021-09-06 11:35 | disposition home or self-care (01) | DRG 786 ==
LOC: LDRP 06:30
PROVIDERS: ADMIT Family Medicine; ATTEND Family Medicine
PROC: 10D00Z1 Extraction of Products of Conception, Low, Open Approach (ICD-10-PCS; principal; 2021-09-04 14:20)
DX: O99.214 Obesity complicating childbirth (principal); O34.33 Maternal care for cervical incompetence, third trimester; D62 Acute posthemorrhagic anemia; Z3A.38 38 weeks gestation of pregnancy; Z37.0 Single live birth; O99.334 Smoking (tobacco) complicating childbirth; F17.210 Nicotine dependence, cigarettes, uncomplicated; O32.1XX0 Maternal care for breech presentation, not applicable or unspecified; O90.81 Anemia of the puerperium
CPT/HCPCS: 36415; 83033; 85025; 86850; 86900; 86901; 94664

== ENCOUNTER 2022-08-20 05:30 | Outpatient (CLI) | payer MEDICAID ==
[~2022-08-20] VITALS: Ht 152.4 cm; Wt 91.8 kg
[~2022-08-20 05:30] MED LIST changes: +ACHD5005 PO; +DOCU100C37 PO; +IBUP-1773 PO; +IBUP-844 PO
== END 2022-08-20 12:02 ==
LOC: PREOP 05:30
PROVIDERS: ATTEND Obstetrics & Gynecology
DX: Z01.818 Encounter for other preprocedural examination (principal); N92.0 Excessive and frequent menstruation with regular cycle

== ENCOUNTER 2022-12-09 19:40 | Emergency (ER) | payer MEDICAID ==
[~2022-12-09] VITALS: Ht 152.4 cm; Wt 92.1 kg
[2022-12-09] MEDS ORDERED: CITA20TA9 (19:53)
--- NOTE | 2022-12-09 20:10 | ED GI ---
General Chief Complaint: Abdominal/GI Problems Stated Complaint: CONSTIPATION/UNABLE TO URINATE Nursing Triage Note: REPORTS CONSTIPATION X2DAYS, UNABLE TO VOID. LAST BM 12/07/22 Source of Information: Patient (GIVES CONFLICTING INFORMATION) History of Present Illness Date Seen by Provider: Dec 09, 2022 Time Seen by Provider: 19:50 Initial Comments PT ARRIVES VIA POV FROM HOME STATES SHE IS CONSTIPATED AND HAS NOT BEEN ABLE TO HAVE A BM FOR SEVERAL DAYS--PT IS NOT SURE WHEN HER LAST BM WAS--STATES IT HAS BEEN AT LEAST SINCE Saturday12/05/22--POSSIBLY LONGER SHE HAS MILD DIFFUSE LOWER ABDOMINAL DISCOMFORT C/O NAUSEA, NO VOMITING SHE STATES TODAY SHE "CAN'T URINATE" DUE TO THIS PROBLEM, SHE LAST VOIDED 2 LALO RS AGO SHE ADMITS TO ALWAYS EATING A POOR DIET, BUT NO CHANGES IN HER DIET SHE LAST ATE AT 11:00 AM TODAY--VINCENTIAN FRIES AND CHICKEN NUGGETS SHE HAS BEEN ABLE TO DRINK NORMALLY NO FEVER NO HISTORY OF SIMILAR SHE TAKES AN ANTI-DEPRESSANT, BUT NO CHANGES IN MEDICATIONS OR DOSAGE SHE TOOK AN UNKNOWN OTC MEDICATION "STOOL SOFTENER OR LAXATIVE", PER PT--2 HOURS AGO--NO RELIEF, SO CAME HERE SHE HAS NOT TAKEN ANYTHING ELSE FOR THIS PROBLEM. LMP--10/31/22. S/P BTL. PCP: SUSAN Allergies and Home Medications Allergies Coded Allergies: latex (Verified Allergy, Unknown, RASH, 08/20/22) Patient Home Medication List Citalopram Hydrobromide (Citalopram HBr) 20 Mg Tablet, (Reported) Entered as Reported by: ROSALINE MARSHALL on 12/09/221952 Last Action: New Order Review of Systems Review of Systems Constitutional: no symptoms reported Respiratory: No Symptoms Reported Cardiovascular: No Symptoms Reported Gastrointestinal: See HPI, Abdominal Pain, Constipated, Nausea; Denies Vomiting Genitourinary: See HPI; Denies Burning Musculoskeletal: no symptoms reported Skin: no symptoms reported Psychiatric/Neurological: No Symptoms Reported Endocrine: No Symptoms Reported Hematologic/Lymphatic: No Symptoms Reported Past Epddldc-Aqxslk-Uolcic Hx Patient Social History Tobacco Use?: Yes Tobacco type used: Cigarettes Smoking Status: Current Everyday Smoker Substance use?: No Alcohol Use?: No Pt feels they are or have been: No Immunizations Up To Date Tetanus Booster (TDap): Less than 5yrs First/Initial COVID19 Vaccinat: NA Seasonal Allergies Seasonal Allergies: Yes Past Medical History Surgery/Hospitalization HX: , OOPHERECTOMY, BLADDER SX, DEPRESSION, ANXIETY, ECZEMA Surgeries: Yes (oral surgery, ) Bladder Surgery, Section, Tubal Ligation Respiratory: Yes (R/-T ) Asthma Currently Using CPAP: No Currently Using BIPAP: No Cardiac: No Neurological: Yes Headaches /Migraines : No Last Menstrual Period: Oct 31, 2022 Female Reproductive Disorders: Denies RADIO HOST History: Tubal Ligation Genitourinary: Yes (BLADDER SURGERY) UTI-Chronic Gastrointestinal: No Musculoskeletal: Yes (BACK PAIN) Chronic Back Pain Endocrine: No (OBESITY) HEENT: No Cancer: No Psychosocial: Yes Anxiety, Depression Integumentary: Yes Eczema Blood Disorders: No Physical Exam Vital Signs Vital Signs - First Documented 12/09/22 19:48 Temp 36.6 Pulse 105 Resp 16 B/P (MAP) 111/70 (84) Pulse Ox 98 O2 Delivery Room Air Capillary Refill : Less Than 3 Seconds Height/Weight/BMI Height: '" Weight: lbs. oz. kg; 39.00 BMI Method: General Appearance: WD/WN, no apparent distress, obese, other (WALKS UPRIGHT AND MOVES WITHOUT DIFFICULTY. DOES NOT APPEAR TO BE IN ANY DISCOMFORT OR DISTRESS) Respiratory: normal breath sounds Cardiovascular: regular rate, rhythm Gastrointestinal: soft Extremities: normal inspection Back: no CVA tenderness Neurologic/Psychiatric: olive knocker II-XII nml as tested, no motor/sensory deficits, alert, normal mood/affect, oriented x 3 Skin: normal color, warm/dry Progress/Results/Core Measures Results/Orders Lab Results Laboratory Tests Test 12/09/22 20:21 Range/Units Urine Color YELLOW Urine Clarity CLEAR Urine pH 6.5 5-9 Urine Specific [place] <=1.005 1.016-1.022 Urine Protein NEGATIVE NEGATIVE Urine Glucose (UA) NEGATIVE NEGATIVE Urine Ketones NEGATIVE NEGATIVE Urine Nitrite NEGATIVE NEGATIVE Urine Bilirubin NEGATIVE NEGATIVE Urine Urobilinogen 0.2 < = 1.0 MG/DL Urine Leukocyte Esterase TRACE H NEGATIVE Urine RBC (Auto) 1+ H NEGATIVE Urine RBC NONE /HPF Urine WBC 0-2 /HPF Urine Squamous Epithelial Cells 2-5 /HPF Urine Crystals NONE /LPF Urine Bacteria FEW H /HPF Urine Casts NONE /LPF Urine Mucus NEGATIVE /LPF Urine Culture Indicated YES Urine Test NEGATIVE NEGATIVE My Orders Orders - NICOLE GONSALEZ DO Acute Abd Series (12/09/22 20:04) Hcg,Qualitative Urine (12/09/22 20:04) Ua Culture If Indicated (12/09/22 20:04) Urine Culture (12/09/22 20:21) Vital Signs/I&O 12/09/22 19:48 Temp 36.6 Pulse 105 Resp 16 B/P (MAP) 111/70 (84) Pulse Ox 98 O2 Delivery Room Air Blood Pressure Mean: 84 Progress Progress Note : Progress Note PT WAS ABLE TO VOID DURING ER STAY PT ALSO HAD A BM ON RETURN FROM XRAY, AND SYMPTOMS OF ABDOMINAL DISCOMFORT RESOLVED, AND ABDOMEN IS NON-TENDER Diagnostic Imaging Comments ACUTE ABDOMEN XRAYS--PER RADIOLOGIST REPORT [id number] FINDINGS: Lungs are clear. No pleural effusion or pneumothorax. Normal cardiomediastinal silhouette. Nonobstructive bowel gas pattern. No free intraperitoneal air. No abnormal soft tissue mineralization. Normal regional skeleton. IMPRESSION: No radiographic abnormality. Reviewed: Reviewed by Me Departure Impression Primary Impression: Constipation Disposition: HOME, SELF-CARE Condition: Stable Departure-Patient Inst. Decision time for Depature: 20:37 Referrals: JORGE MCCOY MD (PCP/Family) Primary Care Physician Patient Instructions: Constipation, Adult (DC) Add. Discharge Instructions: CLEAR LIQUIDS--WATER, BROTH, JELLO, GATORADE NO FOOD UNTIL YOU HAVE A BM AFTER YOU HAVE A BM, THEN START A HIGH FIBER DIET YOU MAY USE DULCOLAX SUPPOSITORIES AND FLEET'S ENEMAS RECTALLY FOR BM YOU NEED TO TAKE MIRALAX 1 CAPFUL IN 8 OZ OF WATER, EVERY HOUR UNTIL YOU HAVE A BM AFTER YOU HAVE A BM, BEGIN TAKING MIRALAX ONCE A DAY EVERY DAY TO PREVENT FURTHER PROBLEMS YOU MAY ALSO TAKE MAGNESIUM CITRATE ORALLY FOR BM FOLLOW UP WITH [facility] IN 2 DAYS IF NO BM All discharge instructions reviewed with patient and/or family. Voiced understanding. NICOLE GONSALEZ DO Dec 09, 2022 20:10
[2022-12-09 20:30] LABS: BILIRUBIN,URINE NEGATIVE (NEGATIVE); CLARITY,URINE CLEAR; COLOR,URINE YELLOW; GLUCOSE, URINE (UA) NEGATIVE (NEGATIVE); KETONES,URINE NEGATIVE (NEGATIVE); LEUKOCYTE ESTERASE ,URINE TRACE (NEGATIVE); NITRITE,URINE NEGATIVE (NEGATIVE); PH,URINE 6.5 (5-9); PROTEIN,URINE NEGATIVE (NEGATIVE)
--- NOTE | 2022-12-09 20:34 | Diagnostic Imaging Report ---
Acute abd series INDICATION: Abdominal pain. COMPARISON: None available. TECHNIQUE: PA chest with upright and supine views of the abdomen. FINDINGS: Lungs are clear. No pleural effusion or pneumothorax. Normal cardiomediastinal silhouette. Nonobstructive bowel gas pattern. No free intraperitoneal air. No abnormal soft tissue mineralization. Normal regional skeleton. IMPRESSION: No radiographic abnormality. Dictated by: Dictated on workstation # [id number]
[2022-12-09 20:51] LABS: BACTERIA,URINE FEW /HPF; WBC,URINE 0-2 /HPF
[2022-12-09 20:58] VITALS: BP 115/69
== END 2022-12-09 21:00 | disposition home or self-care (01) ==
LOC: EDUNIT# 19:40 → ER 19:44
DX: K59.00 Constipation, unspecified (principal); F17.210 Nicotine dependence, cigarettes, uncomplicated; Z28.310 Unvaccinated for COVID-19
CPT/HCPCS: 74022; 81000; 84703; 87088

== ENCOUNTER 2023-01-22 10:52 | Emergency (ER) | payer MEDICAID ==
[~2023-01-22] VITALS: Ht 152.4 cm; Wt 94.3 kg
[~2023-01-22 10:52] MED LIST changes: +CITA20TA9 PO
[2023-01-22 11:48] LABS: BILIRUBIN,URINE NEGATIVE (NEGATIVE); CLARITY,URINE CLEAR; COLOR,URINE YELLOW; GLUCOSE, URINE (UA) NEGATIVE (NEGATIVE); KETONES,URINE NEGATIVE (NEGATIVE); LEUKOCYTE ESTERASE ,URINE 1+ (NEGATIVE); NITRITE,URINE NEGATIVE (NEGATIVE); PROTEIN,URINE 1+ (NEGATIVE)
[2023-01-22 12:06] LABS: BACTERIA,URINE MODERATE /HPF; RBC,URINE 25-50 /HPF; SQUAMOUS EPITHELIAL CELL,UR 0-2 /HPF
[2023-01-22 12:07] LABS: YEAST,URINE FEW /HPF
[2023-01-22] MEDS ORDERED: KETOROLAC 30 MG/ML VIAL IVP ONE (12:15)
[2023-01-22] MEDS ORDERED: NS IV 1000 ML 1,000 ML IV STA (12:15)
--- NOTE | 2023-01-22 12:23 | ED GU-Female ---
General Chief Complaint: - Reproductive Stated Complaint: FEVER | BODY ACHES | LIGHT HEADED Nursing Triage Note: PT AMB TO ED BY POV WITH C/O R LOWER BACK PAIN, FEVER, AND CHILLS. PT REPORTS SHE WAS SEEN AT [facility] YESTERDAY AND STARTED MACROBID FOR UTI TODAY. DENIES BURNING OR PAIN WITH URINATION OR URGENCY. REPORTS R LOWER BACK PAIN OVER THE WEEKEND WITH FEVER AND CHILLS. DENIES N/V/D. Source: patient Exam Limitations: no limitations (DENICE ASHBY APRN) History of Present Illness Date Seen by Provider: Jan 22, 2023 Time Seen by Provider: 11:54 Initial Comments 27-year-old female presents the ED with complaints of right flank pain since Saturday and fever. Reports she was seen at [facility] yesterday and diagnosed with a UTI and started on Macrobid. She reports that she feels dehydrated, states her mouth is dry, she states she feels lightheaded, she also reports decreased urinary output. Patient states she was told that there was blood in her urine when she was at the clinic yesterday. Last menstrual cycle was 01/14/2023. She denies any current vaginal discharge or bleeding. She denies dysuria, frequency, urgency. Reports last bowel movement was this morning and was a sm all loose stool. Denies chest pain, shortness of air, abdominal pain, nausea, vomiting. (DENICE ASHBY APRN) Allergies and Home Medications Allergies Coded Allergies: latex (Verified Allergy, Unknown, RASH, 08/20/22) Patient Home Medication List Home Medication List Reviewed: Yes (DENICE ASHBY APRN) Citalopram Hydrobromide (Citalopram HBr) 20 Mg Tablet, (Reported) Entered as Reported by: ROSALINE MARSHALL on 12/09/221952 Sulfamethoxazole/Trimethoprim (Bactrim Ds Tablet) 1 Each Tablet, 1 EACH PO BID Prescribed by: Denice Ashby on 01/22/23 1433 Review of Systems Review of Systems Constitutional: see HPI (DENICE ASHBY APRN) Past Unrkprq-Unkhum-Hboftg Hx Patient Social History Tobacco Use?: Yes Tobacco type used: Cigarettes Smoking Status: Current Everyday Smoker Use of E-Cig and/or Vaping dev: Yes E-Cig or Vaping type used: Nicotine Use of E-Cig and/or Vaping Denis: Current Everyday User Substance use?: No Alcohol Use?: No Pt feels they are or have been: No (DENICE ASHBY APRN) Immunizations Up To Date Tetanus Booster (TDap): Less than 5yrs Influenza Vaccine Up-to-Date: No; Not Current First/Initial COVID19 Vaccinat: NA Second COVID19 Vaccination Alexandr: NA Third COVID19 Vaccination Date: NA (DENICE ASHBY APRN) Seasonal Allergies Seasonal Allergies: Yes (DENICE ASHBY APRN) Past Medical History Surgery/Hospitalization HX: , OOPHERECTOMY, BLADDER SX, DEPRESSION, ANXIETY, ECZEMA Surgeries: Yes (oral surgery, ) Bladder Surgery, Section, Tubal Ligation Respiratory: Yes (R/-T ) Asthma Currently Using CPAP: No Currently Using BIPAP: No Cardiac: No Neurological: Yes Headaches /Migraines Female Reproductive Disorders: Denies 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 oz. kg; 40.00 BMI Method: General Appearance: WD/WN, no apparent distress Neck: supple, normal inspection Cardiovascular: regular rate, rhythm, no edema, no gallop, no JVD, no murmur Respiratory: lungs clear, normal breath sounds, no respiratory distress, no accessory muscle use Gastrointestinal: normal bowel sounds, soft, tenderness (Mild left lower quadrant tenderness) Back: CVA tenderness (R); No CVA tenderness (L) Extremities: normal range of motion, normal inspection Neurologic/Psychiatric: alert, normal mood/affect Skin: normal color, warm/dry (DENICE ASHBY APRN) Focused Exam Lactate Level 01/22/23 13:24: Lactic Acid Level 0.52 (MAYKEL IBANEZ MD) Progress/Results/Core Measures Suspected Sepsis SIRS Temperature: Pulse: 101 Respiratory Rate: 16 Laboratory Tests 01/22/23 12:50: White Blood Count 11.7H Blood Pressure 119 /80 Mean: 93 01/22/23 13:24: Lactic Acid Level 0.52 Laboratory Tests 01/22/23 12:50: Creatinine 0.73, Platelet Count 253, Total Bilirubin 0.3 (DENICE ASHBY APRN) Results/Orders Lab Results Laboratory Tests Test 01/22/23 11:39 01/22/23 12:50 01/22/23 13:24 Range/Units Urine Color YELLOW Urine Clarity CLEAR Urine pH 6.0 5-9 Urine Specific [place] 1.020 1.016-1.022 Urine Protein 1+ H NEGATIVE Urine Glucose (UA) NEGATIVE NEGATIVE Urine Ketones NEGATIVE NEGATIVE Urine Nitrite NEGATIVE NEGATIVE Urine Bilirubin NEGATIVE NEGATIVE Urine Urobilinogen 0.2 < = 1.0 MG/DL Urine Leukocyte Esterase 1+ H NEGATIVE Urine RBC (Auto) 3+ H NEGATIVE Urine RBC 25-50 H /HPF Urine WBC 10-25 H /HPF Urine Squamous Epithelial Cells 0-2 /HPF Urine Crystals NONE /LPF Urine Bacteria MODERATE H /HPF Urine Casts NONE /LPF Urine Mucus NEGATIVE /LPF Urine Yeast FEW H /HPF Urine Culture Indicated YES Urine Test NEGATIVE NEGATIVE Influenza Type A (RT-PCR) Not Detected Not Detecte Influenza Type B (RT-PCR) Not Detected Not Detecte SARS-CoV-2 RNA (RT-PCR) Not Detected Not Detecte White Blood Count 11.7 H 4.3-11.0 10^3/uL Red Blood Count 4.56 3.80-5.11 10^6/uL Hemoglobin 11.1 L 11.5-16.0 g/dL Hematocrit 34 L 35-52 % Mean Corpuscular Volume 74 L 80-99 fL Mean Corpuscular Hemoglobin 24 L 25-34 pg Mean Corpuscular Hemoglobin Concent 33 32-36 g/dL Red Cell Distribution Width 15.8 H 10.0-14.5 % Platelet Count 253 130-400 10^3/uL Mean Platelet Volume 10.2 9.0-12.2 fL Immature Granulocyte % (Auto) 0 % Neutrophils (%) (Auto) 83 H 42-75 % Lymphocytes (%) (Auto) 8 L 12-44 % Monocytes (%) (Auto) 7 0-12 % Eosinophils (%) (Auto) 1 0-10 % Basophils (%) (Auto) 0 0-10 % Neutrophils # (Auto) 9.8 H 1.8-7.8 10^3/uL Lymphocytes # (Auto) 1.0 1.0-4.0 10^3/uL Monocytes # (Auto) 0.9 0.0-1.0 10^3/uL Eosinophils # (Auto) 0.1 0.0-0.3 10^3/uL Basophils # (Auto) 0.0 0.0-0.1 10^3/uL Immature Granulocyte # (Auto) 0.0 0.0-0.1 10^3/uL Sodium Level 138 135-145 MMOL/L Potassium Level 3.1 L 3.6-5.0 MMOL/L Chloride Level 104 98-107 MMOL/L Carbon Dioxide Level 24 21-32 MMOL/L Anion Gap 10 5-14 MMOL/L Blood Urea Nitrogen 8 7-18 MG/DL Creatinine 0.73 0.60-1.30 MG/DL Estimat Glomerular Filtration Rate 116 BUN/Creatinine Ratio 11 Glucose Level 88 70-105 MG/DL Calcium Level 9.1 8.5-10.1 MG/DL Corrected Calcium 9.4 8.5-10.1 MG/DL Total Bilirubin 0.3 0.1-1.0 MG/DL Aspartate Amino Transf (AST/SGOT) 16 5-34 U/L Alanine Aminotransferase (ALT/SGPT) 14 0-55 U/L Alkaline Phosphatase 85 40-136 U/L Total Protein 6.8 6.4-8.2 GM/DL Albumin 3.6 3.2-4.5 GM/DL Amylase Level 23 L 25-125 U/L Lipase 5 L 8-78 U/L Lactic Acid Level 0.52 0.50-2.00 MMOL/L (MAYKEL IBANEZ MD) Micro Results Microbiology 01/22/23 Urine Culture - Preliminary, Resulted Escherichia coli (MAYKEL IBANEZ MD) My Orders Orders - MAYKEL IBANEZ MD Covid 19 Inhouse Test (01/22/23 11:21) Ua Culture If Indicated (01/22/23 11:21) Influenza A And B By Pcr (01/22/23 11:21) Urine Culture (01/22/23 11:39) (MAYKEL IBANEZ MD) Vital Signs/I&O Capillary Refill : Less Than 3 Seconds (DENICE ASHBY APRN) Blood Pressure Mean: 93 Progress Note : Time: 12:23 Progress Note Patient seen and evaluated, resting comfortably in bed, no acute distress. Based on exam and symptoms, differential diagnosis includes but is not limited to, pyelonephritis, kidney stones. Work-up initiated including CBC, CMP, UA, urine , COVID, flu, CT abdomen pelvis. IV fluids and Toradol ordered. 1420 CBC shows elevated WBC 11.7, decreased hemoglobin 11.1, decreased hematocrit 34, decreased MCV 74, elevated for percentage 83. Patient has had anemia in the past, hemoglobin and hematocrit are improved from previous. CMP shows decreased potassium 3.1, oral potassium ordered. Lactic acid normal. Amylase and lipase level. UA shows 1+ protein, 1+ leukocytes, 3+ RBCs, 10-25 WBCs, moderate bacteria. COVID and flu negative. CT shows mild right renal enlargement with heterogeneous enhancement pattern of the lower pole. There is also periureteral inflammatory stranding on the right. This is likely pyelonephritis. No calculi are noted. Rocephin ordered for pyelonephritis. Results discussed with patient. Patient reports that she has had low potassium in the past as well. Will change patient's antibiotic from nitrofurantoin to Bactrim. Discharge instructions and return precautions provided. (DENICE ASHBY APRN) Diagnostic Imaging Diagonstic Imaging: CT Plain Films/CT/US/NM/MRI: abdomen, pelvis Comments [facility], [place] NAME: RENATA HAWKINS [facility] REC#: [id number] PT STATUS: DEP ER : 1995 PHYSICIAN: DENICE ASHBY APRN ADMIT DATE: 01/22/23/ER Signed Date of Exam:01/22/23 CT ABDOMEN/PELVIS W PROCEDURE: CT abdomen and pelvis with contrast. TECHNIQUE: Multiple contiguous axial images were obtained through the abdomen and pelvis after administration of intravenous contrast. Auto Exposure Controls were utilized during the CT exam to meet ALARA standards for radiation dose reduction. All CT scans use one or more of the following dose optimizing techniques: automated exposure control, MA and/or KvP adjustment based on patient size and exam type or iterative reconstruction. INDICATION: Low back pain, fever and chills with urinary tract infection. No prior studies are available for comparison. The lung bases are clear. The liver and gallbladder are unremarkable. There is no biliary duct dilatation. The pancreas and spleen are unremarkable. No adrenal mass is identified. Left kidney is unremarkable. There is some enlargement to the right kidney. Enhancement pattern is slightly heterogeneous in the lower pole. No definite calculi are seen. There does appear to be some mild periureteral inflammatory stranding at the level of the proximal ureter on the right and renal pelvis. Aorta is nonaneurysmal. Bowel loops are normal caliber. Appendix is unremarkable. There is moderate stool in the colon. There is no ascites. The uterus and bladder are unremarkable. IMPRESSION: There is some mild right renal enlargement with heterogeneous enhancement pattern to the lower pole. In addition, there is a periureteral inflammatory stranding on the right. Possibility of pyelonephritis cannot be entirely excluded. No calculi are seen. No renal abscess is detected. There is no evidence of obstruction. Dictated by: Dictated on workstation # [id number] Dict: 01/22/23 1311 Trans: 01/22/23 1900 [facility] [id number] Interpreted by: DARWIN WEBER MD Electronically signed by: DARWIN WEBER MD 01/22/23 190 (DENICE ASHBY APRN) Departure Impression Primary Impression: Pyelonephritis Additional Impressions: Hypokalemia Anemia Qualified Codes: D64.9 - Anemia, unspecified Disposition: 01 HOME, SELF-CARE Condition: Stable Departure-Patient Inst. Decision time for Depature: 14:28 (DENICE ASHBY APRN) Referrals: EDGAR DOMÍNGUEZ APRN (PCP/Family) Primary Care Physician Patient Instructions: Kidney Infection Add. Discharge Instructions: Stop taking your nitrofurantoin. Start taking Bactrim 1 tablet twice a day for 14 days. Increase your potassium intake. Follow-up with your primary care provider in about 1 week. Return for severe pain, recurrent vomiting, or any other new, concerning, or worsening symptoms. All discharge instructions reviewed with patient and/or family. Voiced understanding. Scripts Sulfamethoxazole/Trimethoprim (Bactrim Ds Tablet) 1 Each Tablet 1 EACH PO BID for 14 Days, #28 TAB 0 Refills Prov: DENICE ASHBY APRN 01/22/23 ATTENDING PHYSICIAN NOTE: I was physically present as attending physician in the emergency department during the care of this patient. I discussed treatment of hypokalemia and pyelonephritis with Denice Ashby, FREDI. We also reviewed CT report together. I did not personally interview or examine this patient. I was not otherwise dire ctly involved in the decision making or delivery of care for this patient. (MAYKEL IBANEZ MD) DENICE ASHBY APRN Jan 22, 2023 12:23 MAYKEL IBANEZ MD Jan 23, 2023 12:59
[2023-01-22] MEDS ORDERED: NS 100 ML (IVPB) BAG IV ONE (12:30)
[2023-01-22] MEDS ORDERED: HOLD METFORMIN - RECEIVED CONTRAST 20 ML VIAL IV SCH (12:30)
[2023-01-22] MEDS ORDERED: IOHEXOL 350 MG/ML 100 ML (OMNIPAQUE 350) VIAL IV ONE (12:30)
[2023-01-22 12:58] LABS: BASOPHILS % (AUTO) 0 % (0-10); EOSINOPHILS # (AUTO) 0.1 10^3/uL (0.0-0.3); EOSINOPHILS % (AUTO) 1 % (0-10); HEMATOCRIT 34 % (35-52); HEMOGLOBIN 11.1 g/dL (11.5-16.0); LYMPHOCYTES % (AUTO) 8 % (12-44); MEAN CORPUSCULAR HEMOGLOBIN 24 pg (25-34); MEAN CORPUSCULAR HGB CONC 33 g/dL (32-36); MEAN CORPUSCULAR VOLUME 74 fL (80-99); MEAN PLATELET VOLUME 10.2 fL (9.0-12.2); MONOCYTES # (AUTO) 0.9 10^3/uL (0.0-1.0); MONOCYTES % (AUTO) 7 % (0-12); NEUTROPHILS # (AUTO) 9.8 10^3/uL (1.8-7.8); NEUTROPHILS % (AUTO) 83 % (42-75); PLATELET COUNT 253 10^3/uL (130-400); WHITE BLOOD COUNT 11.7 10^3/uL (4.3-11.0)
[2023-01-22 13:07] LABS: ALBUMIN 3.6 GM/DL (3.2-4.5); POTASSIUM 3.1 MMOL/L (3.6-5.0)
[2023-01-22 13:08] LABS: CALCIUM 9.1 MG/DL (8.5-10.1)
[2023-01-22 13:10] LABS: TOTAL PROTEIN 6.8 GM/DL (6.4-8.2)
[2023-01-22 13:12] LABS: BILIRUBIN,TOTAL 0.3 MG/DL (0.1-1.0)
[2023-01-22 13:13] LABS: CREATININE SERUM 0.73 MG/DL (0.60-1.30)
--- NOTE | 2023-01-22 13:18 | Diagnostic Imaging Report ---
PROCEDURE: CT abdomen and pelvis with contrast. TECHNIQUE: Multiple contiguous axial images were obtained through the abdomen and pelvis after administration of intravenous contrast. Auto Exposure Controls were utilized during the CT exam to meet ALARA standards for radiation dose reduction. All CT scans use one or more of the following dose optimizing techniques: automated exposure control, MA and/or KvP adjustment based on patient size and exam type or iterative reconstruction. INDICATION: Low back pain, fever and chills with urinary tract infection. No prior studies are available for comparison. The lung bases are clear. The liver and gallbladder are unremarkable. There is no biliary duct dilatation. The pancreas and spleen are unremarkable. No adrenal mass is identified. Left kidney is unremarkable. There is some enlargement to the right kidney. Enhancement pattern is slightly heterogeneous in the lower pole. No definite calculi are seen. There does appear to be some mild periureteral inflammatory stranding at the level of the proximal ureter on the right and renal pelvis. Aorta is nonaneurysmal. Bowel loops are normal caliber. Appendix is unremarkable. There is moderate stool in the colon. There is no ascites. The uterus and bladder are unremarkable. IMPRESSION: There is some mild right renal enlargement with heterogeneous enhancement pattern to the lower pole. In addition, there is a periureteral inflammatory stranding on the right. Possibility of pyelonephritis cannot be entirely excluded. No calculi are seen. No renal abscess is detected. There is no evidence of obstruction. Dictated by: Dictated on workstation # [id number]
[2023-01-22] MEDS ORDERED: cefTRIAXone IV/IM 1,000 MG in NS (IVPB) 50 ML IV ONE (13:45)
[2023-01-22] MEDS ORDERED: KCL 20 MEQ TAB (K-DUR) PO ONE (14:30)
[2023-01-22] MEDS ORDERED: SULF1TAB38 PO (14:33)
[2023-01-22 14:46] VITALS: BP 108/65
[2023-01-23] MEDS ORDERED: POLY17PO6 PO (14:33)
[2023-01-23] MEDS ORDERED: NAPR220C61 PO (14:33)
[2023-01-23] MEDS ORDERED: BISA-151 PO (14:33)
[2023-01-23] MEDS ORDERED: SULF-221 PO (14:33)
[2023-01-23] MEDS ORDERED: LACT1CAP62 PO (14:33)
== END 2023-01-22 14:46 | disposition home or self-care (01) ==
LOC: EDUNIT# 10:52 → ER 10:54
DX: N12 Tubulo-interstitial nephritis, not specified as acute or chronic (principal); E87.6 Hypokalemia; D64.9 Anemia, unspecified; N28.81 Hypertrophy of kidney; N39.0 Urinary tract infection, site not specified; E66.9 Obesity, unspecified; Z68.41 Body mass index [BMI] 40.0-44.9, adult; Z91.040 Latex allergy status; F17.210 Nicotine dependence, cigarettes, uncomplicated; F17.290 Nicotine dependence, other tobacco product, uncomplicated; Z20.822 Contact with and (suspected) exposure to COVID-19; Z28.310 Unvaccinated for COVID-19
CPT/HCPCS: 36415; 74177; 80053; 81000; 82150; 83605; 83690; 84703; 85025; 87077; 87088; 87186; 87636

== ENCOUNTER 2023-01-23 01:21 | Inpatient (IN) | payer MEDICAID ==
[~2023-01-23] VITALS: Ht 152.4 cm; Wt 95.5 kg
[~2023-01-23 01:21] MED LIST changes: +SULF1TAB38 PO
[2023-01-23] MEDS ORDERED: LACTATED RINGERS 1,000 ML IV ONE ×2 (01:30→02:45)
[2023-01-23] MEDS ORDERED: ONDANSETRON 4 MG/2 ML (SDV) Z0FRAN IVP ONE ×2 (01:30→02:30)
[2023-01-23] MEDS ORDERED: CEFEPIME INJECTION 1,000 MG in NS (IVPB) 50 ML IV ONE (01:45)
[2023-01-23] MEDS ORDERED: ACETAMINOPHEN 500 MG TAB (TYLENOL) PO PRN (01:45)
[2023-01-23 01:54] LABS: BASOPHILS # (AUTO) 0.1 10^3/uL (0.0-0.1); BASOPHILS % (AUTO) 0 % (0-10); EOSINOPHILS # (AUTO) 0.1 10^3/uL (0.0-0.3); EOSINOPHILS % (AUTO) 1 % (0-10); HEMATOCRIT 31 % (35-52); HEMOGLOBIN 10.2 g/dL (11.5-16.0); LYMPHOCYTES # (AUTO) 0.8 10^3/uL (1.0-4.0); LYMPHOCYTES % (AUTO) 5 % (12-44); MEAN CORPUSCULAR HEMOGLOBIN 24 pg (25-34); MEAN CORPUSCULAR HGB CONC 33 g/dL (32-36); MEAN CORPUSCULAR VOLUME 73 fL (80-99); MEAN PLATELET VOLUME 10.4 fL (9.0-12.2); MONOCYTES # (AUTO) 0.8 10^3/uL (0.0-1.0); MONOCYTES % (AUTO) 5 % (0-12); NEUTROPHILS # (AUTO) 15.3 10^3/uL (1.8-7.8); NEUTROPHILS % (AUTO) 89 % (42-75); PLATELET COUNT 223 10^3/uL (130-400); WHITE BLOOD COUNT 17.1 10^3/uL (4.3-11.0)
[2023-01-23] MEDS ORDERED: KETOROLAC 30 MG/ML VIAL IVP ONE (02:00)
[2023-01-23 02:02] LABS: ALBUMIN 3.3 GM/DL (3.2-4.5); CHLORIDE 105 MMOL/L (98-107); POTASSIUM 2.9 MMOL/L (3.6-5.0); SODIUM 135 MMOL/L (135-145)
[2023-01-23 02:03] LABS: AMYLASE 20 U/L (25-125)
[2023-01-23 02:04] LABS: CALCIUM 8.4 MG/DL (8.5-10.1)
[2023-01-23 02:05] LABS: GLUCOSE 133 MG/DL (70-105); TOTAL PROTEIN 6.6 GM/DL (6.4-8.2)
[2023-01-23 02:06] LABS: BILIRUBIN,TOTAL 0.3 MG/DL (0.1-1.0); CARBON DIOXIDE 17 MMOL/L (21-32); INR 1.1 (0.8-1.4); PROTHROMBIN TIME PATIENT 14.6 SEC (12.2-14.7)
[2023-01-23 02:08] LABS: ALKALINE PHOSPHATASE 79 U/L (40-136); GFR ESTIMATED 104
[2023-01-23 02:09] LABS: BUN/CREATININE RATIO 9
[2023-01-23 02:11] LABS: ALANINE AMINOTRANSFERASE 12 U/L (0-55)
[2023-01-23 02:12] LABS: LIPASE < 4 U/L (8-78)
[2023-01-23] MEDS ORDERED: IBUPROFEN 800 MG (MOTRIN) TAB PO ONE (02:30)
[2023-01-23 02:39] LABS: BAND NEUTROPHILS 4 %; ELLIPT/OVALOCYTES SLIGHT; HYPOCHROMASIA SLIGHT; LYMPHOCYTES % (MANUAL) 8 %; MICROCYTOSIS SLIGHT; MONOCYTES % (MANUAL) 1 %; NEUTROPHILS % (MANUAL) 87 %
[2023-01-23 03:12] LABS: BILIRUBIN,URINE NEGATIVE (NEGATIVE); CLARITY,URINE CLEAR; COLOR,URINE YELLOW; GLUCOSE, URINE (UA) NEGATIVE (NEGATIVE); KETONES,URINE NEGATIVE (NEGATIVE); LEUKOCYTE ESTERASE ,URINE TRACE (NEGATIVE); NITRITE,URINE NEGATIVE (NEGATIVE); PROTEIN,URINE 1+ (NEGATIVE)
[2023-01-23 03:21] LABS: BACTERIA,URINE FEW /HPF; RBC,URINE >100 /HPF; SQUAMOUS EPITHELIAL CELL,UR 0-2 /HPF
[2023-01-23 03:26] LABS: AMPHETAMINE SCREEN, URINE NEGATIVE (NEGATIVE); BARBITURATE SCREEN URINE NEGATIVE (NEGATIVE); BENZODIAZEPINES SCREEN URINE POSITIVE (NEGATIVE); CANNABINOID SCREEN, URINE POSITIVE (NEGATIVE); COCAINE SCREEN URINE NEGATIVE (NEGATIVE); METHADONE STAT NEGATIVE (NEGATIVE); OPIATE SCREEN URINE NEGATIVE (NEGATIVE); OXYCODONE STAT NEGATIVE (NEGATIVE); PROPOXYPHENE STAT NEGATIVE (NEGATIVE); TRICYCLIC ANTIDEPRESSANTS SCRE NEGATIVE (NEGATIVE)
--- NOTE | 2023-01-23 04:00 | ED GU-Female ---
General Chief Complaint: Abdominal/GI Problems Stated Complaint: N/V Nursing Triage Note: Pt presents via EMS with c/o abdominal pain, n/v and fever. She reports hx of kidney infection that she started taking bactrim for today. She reports fever off and on since saturday, and vomiting that started approx 1 hour ago. Source: patient History of Present Illness Date Seen by Provider: Jan 23, 2023 Time Seen by Provider: 01:25 Initial Comments PT ARRIVES VIA EMS FROM HOME NO TREATMENT BY EMS PT WAS SEEN HERE EARLIER TODAY/Saturday01/22/23 FOR UTI SHE STATES SHE BEGAN HAVING BILATERAL FLANK PAIN ON Saturday01/19/23, AND THEN IT MOVED TO HER RIGHT FLANK SHE HAS NOT CHECKED HER TEMPERATURE, BUT HAS HAD SUBJECTIVE FEVER AND CHILLS SHE WAS SEEN AT [facility] ON 01/21/23 AND DX WITH UTI AND PRESCRIBED MACROBID SHE THEN PRESENTED TO ER 01/22/23 FOR SAME COMPLAINTS, AND REPORTING THAT SHE FELT DEHYDRATED, AND HAD DECREASED URINE OUTPUT SHE HAD LAB, UA, AND CT SCAN DONE WHILE IN ER, AND WAS DX WITH PYELONEPHRITIS, GIVEN TORADOL IN ER AND PRESCRIBED BACTRIM--PT HAS TAKEN BACTRIM IN THE PAST AND NOT HAD ANY PROBLEMS. SHE HAS HAD 2 DOSES OF BACTRIM. SHE STATES SHE BEGAN HAVING NAUSEA AND VOMITING AT 0015--SHE HAS VOMITED X 5-6 NO DIARRHEA. HAD NORMAL BM 01/22/23 C/O DECREASED URINE OUTPUT TODAY, SOME DISCOMFORT ON URINATION NO COUGH/SORE THROAT OR RESPIRATORY SYMPTOMS SHE HAS FREQUENT UTI'S, BUT NOT THIS BAD SHE IS NOT DIABETIC AND DENIES ANY CHRONIC MEDICAL PROBLEMS OTHER THAN DEPRESSION/ANXIETY. SHE HAS HAD X 1, OOPHORECTOMY, BLADDER SURGERY LMP 01/14/23, NORMAL. S/P BTL. SHE H PCP: [facility] --GOES TO [facility] FOR [facility]ICAL CARE Allergies and Home Medications Allergies Coded Allergies: latex (Verified Allergy, Unknown, RASH, 08/20/22) Patient Home Medication List Home Medication List Reviewed: Yes Citalopram Hydrobromide (Citalopram HBr) 20 Mg Tablet, (Reported) Entered as Reported by: ROSALINE MARSHALL on 12/09/221952 Sulfamethoxazole/Trimethoprim (Bactrim Ds Tablet) 1 Each Tablet, 1 EACH PO BID Prescribed by: Denice Smith on 01/22/23 1433 Review of Systems Review of Systems Constitutional: see HPI, chills, fever, malaise, weakness EENTM: no symptoms reported Respiratory: no symptoms reported Cardiovascular: no symptoms reported Gastrointestinal: No abdominal pain; diarrhea, nausea, vomiting Genitourinary: no symptoms reported, dysuria LMP: Jan 14, 2023 Musculoskeletal: see HPI, back pain Skin: no symptoms reported Psychiatric/Neurological: No Symptoms Reported Endocrine: No Symptoms Reported Hematologic/Lymphatic: No Symptoms Reported Past Pkdvfel-Bblqxn-Kvjkkk Hx Patient Social History Tobacco Use?: Yes Tobacco type used: Cigarettes Smoking Status: Current Everyday Smoker Substance use?: Yes Substance type: Marijuana Substance frequency: Daily Alcohol Use?: Yes Alcohol Frequency: Once in a while Immunizations Up To Date Tetanus Booster (TDap): Less than 5yrs First/Initial COVID19 Vaccinat: NA Second COVID19 Vaccination Alexandr: NA Third COVID19 Vaccination Date: NA Seasonal Allergies Seasonal Allergies: Yes Past Medical History Surgery/Hospitalization HX: ,BLADDER SX, DEPRESSION, ANXIETY, ECZEMA Surgeries: Yes (oral surgery, ) Bladder Surgery, Section, Tubal Ligation Respiratory: Yes (R/-T ) Asthma Currently Using CPAP: No Currently Using BIPAP: No Cardiac: No Neurological: Yes Headaches /Migraines : No Last Menstrual Period: Jan 14, 2023 Female Reproductive Disorders: Denies 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 History: Tubal Ligation Genitourinary: Yes (BLADDER SURGERY) UTI-Chronic Gastrointestinal: No Musculoskeletal: Yes (BACK PAIN) Chronic Back Pain Endocrine: No (OBESITY) HEENT: Yes (EXTENSIVE DENTAL CARIES) Cancer: No Psychosocial: Yes Anxiety, Depression Integumentary: Yes Eczema Blood Disorders: No Family Medical History SOCIAL HISTORY: -SMOKES 1 PPD -ETOH--OCCASIONAL USE -DRUGS--DAILY MARIJUANA USE PAST SURGICAL HISTORY: - X 1 IN 2020 -BLADDER SURGERY -DENTAL PROCEDURE -BILATERAL TUBAL LIGATION Physical Exam Vital Signs Vital Signs - First Documented 01/23/23 01/23/23 01:23 05:20 Temp 38.6 Pulse 130 Resp 20 B/P (MAP) 109/89 (96) Pulse Ox 95 O2 Delivery Room Air Capillary Refill : Less Than 3 Seconds Height, Weight, BMI Height: '" Weight: lbs. oz. kg; 40.00 BMI Method: General Appearance: WD/WN, no apparent distress, other (UNKEMPT, MALDOROUS, REEKS OF CIGARETTES AND MARIJUANA) HEENT: PERRL/EOMI, other (EXTENSIVE DENTAL CARIES) Neck: normal inspection Cardiovascular: no edema, no JVD, no murmur, tachycardia (130'S) Respiratory: normal breath sounds, no respiratory distress, no accessory muscle use Gastrointestinal: normal bowel sounds, soft, tenderness (MILD SUPRAPUBIC TENDERNESS) Back: no vertebral tenderness, CVA tenderness (R) Extremities: normal range of motion, non-tender, normal inspection, no pedal edema, no calf tenderness, normal capillary refill Neurologic/Psychiatric: chainsaw mechanic II-XII nml as tested, no motor/sensory deficits, alert, normal mood/affect, oriented x 3 Skin: normal color, warm/dry; No rash Focused Exam Sepsis Stage: Sepsis Possible Source: Genitouriary Lactate Level 01/23/23 01:45: Lactic Acid Level 1.14 Time of Focused Exam: 01:55 Respiratory: Normal Breath Sounds, No Accessory Muscle Use, No Respiratory Distress Cardiovascular: No Edema, No JVD, No Murmur, Normal Peripheral Pulses, Tachycardia (HR DOWN TO 100-110) Capillary Refill: Less Than 3 Seconds Skin: normal color, warm/dry Lactic Acid Level Within 3hrs of presentation: Admin fluids, Admin ABX, Blood cultures prior to ABX's, Focus exam, Lactate level Progress/Results/Core Measures Suspected Sepsis SIRS Temperature: Pulse: 130 Respiratory Rate: 20 Laboratory Tests 01/23/23 01:45: White Blood Count 17.1H Blood Pressure 109 /89 Mean: 96 01/23/23 01:45: Lactic Acid Level 1.14 Laboratory Tests 01/23/23 01:45: Creatinine 0.80, INR Comment 1.1, Platelet Count 223, Total Bilirubin 0.3 Results/Orders Lab Results Laboratory Tests Test 01/23/23 01:45 01/23/23 02:00 01/23/23 03:00 Range/Units White Blood Count 17.1 H 4.3-11.0 10^3/uL Red Blood Count 4.25 3.80-5.11 10^6/uL Hemoglobin 10.2 L 11.5-16.0 g/dL Hematocrit 31 L 35-52 % Mean Corpuscular Volume 73 L 80-99 fL Mean Corpuscular Hemoglobin 24 L 25-34 pg Mean Corpuscular Hemoglobin Concent 33 32-36 g/dL Red Cell Distribution Width 15.7 H 10.0-14.5 % Platelet Count 223 130-400 10^3/uL Mean Platelet Volume 10.4 9.0-12.2 fL Immature Granulocyte % (Auto) 1 % Neutrophils (%) (Auto) 89 H 42-75 % Lymphocytes (%) (Auto) 5 L 12-44 % Monocytes (%) (Auto) 5 0-12 % Eosinophils (%) (Auto) 1 0-10 % Basophils (%) (Auto) 0 0-10 % Neutrophils # (Auto) 15.3 H 1.8-7.8 10^3/uL Lymphocytes # (Auto) 0.8 L 1.0-4.0 10^3/uL Monocytes # (Auto) 0.8 0.0-1.0 10^3/uL Eosinophils # (Auto) 0.1 0.0-0.3 10^3/uL Basophils # (Auto) 0.1 0.0-0.1 10^3/uL Immature Granulocyte # (Auto) 0.1 0.0-0.1 10^3/uL Neutrophils % (Manual) 87 % Lymphocytes % (Manual) 8 % Monocytes % (Manual) 1 % Band Neutrophils 4 % Hypochromasia SLIGHT Microcytosis SLIGHT Elliptocytes SLIGHT Prothrombin Time 14.6 12.2-14.7 SEC INR Comment 1.1 0.8-1.4 Activated Partial Thromboplast Time 38 H 24-35 SEC Sodium Level 135 135-145 MMOL/L Potassium Level 2.9 L 3.6-5.0 MMOL/L Chloride Level 105 98-107 MMOL/L Carbon Dioxide Level 17 L 21-32 MMOL/L Anion Gap 13 5-14 MMOL/L Blood Urea Nitrogen 7 7-18 MG/DL Creatinine 0.80 0.60-1.30 MG/DL Estimat Glomerular Filtration Rate 104 BUN/Creatinine Ratio 9 Glucose Level 133 H 70-105 MG/DL Lactic Acid Level 1.14 0.50-2.00 MMOL/L Calcium Level 8.4 L 8.5-10.1 MG/DL Corrected Calcium 9.0 8.5-10.1 MG/DL Total Bilirubin 0.3 0.1-1.0 MG/DL Aspartate Amino Transf (AST/SGOT) 16 5-34 U/L Alanine Aminotransferase (ALT/SGPT) 12 0-55 U/L Alkaline Phosphatase 79 40-136 U/L Total Protein 6.6 6.4-8.2 GM/DL Albumin 3.3 3.2-4.5 GM/DL Amylase Level 20 L 25-125 U/L Lipase < 4 L 8-78 U/L Serum Test, Qualitative NEGATIVE NEGATIVE Influenza Type A (RT-PCR) Not Detected Not Detecte Influenza Type B (RT-PCR) Not Detected Not Detecte SARS-CoV-2 RNA (RT-PCR) Not Detected Not Detecte Urine Color YELLOW Urine Clarity CLEAR Urine pH 6.0 5-9 Urine Specific [place] 1.020 1.016-1.022 Urine Protein 1+ H NEGATIVE Urine Glucose (UA) NEGATIVE NEGATIVE Urine Ketones NEGATIVE NEGATIVE Urine Nitrite NEGATIVE NEGATIVE Urine Bilirubin NEGATIVE NEGATIVE Urine Urobilinogen 1.0 < = 1.0 MG/DL Urine Leukocyte Esterase TRACE H NEGATIVE Urine RBC (Auto) 3+ H NEGATIVE Urine RBC >100 H /HPF Urine WBC 2-5 /HPF Urine Squamous Epithelial Cells 0-2 /HPF Urine Crystals NONE /LPF Urine Bacteria FEW H /HPF Urine Casts NONE /LPF Urine Mucus SMALL H /LPF Urine Culture Indicated CULTURE PENDING Urine Opiates Screen NEGATIVE NEGATIVE Urine Oxycodone Screen NEGATIVE NEGATIVE Urine Methadone Screen NEGATIVE NEGATIVE Urine Propoxyphene Screen NEGATIVE NEGATIVE Urine Barbiturates Screen NEGATIVE NEGATIVE Ur Tricyclic Antidepressants Screen NEGATIVE NEGATIVE Urine Phencyclidine Screen NEGATIVE NEGATIVE Urine Amphetamines Screen NEGATIVE NEGATIVE Urine Methamphetamines Screen NEGATIVE NEGATIVE Urine Benzodiazepines Screen POSITIVE H NEGATIVE Urine Cocaine Screen NEGATIVE NEGATIVE Urine Cannabinoids Screen POSITIVE H NEGATIVE My Orders Orders - NICOLE GONSALEZ DO Ed Iv/Invasive Line Start (01/23/23:29) Monitor-Rhythm Ecg Trace Only (01/23/23:) Amylase (01/23/23:) Cbc With Automated Diff (01/23/23:) Comprehensive Metabolic Panel (01/23/23:) Drug Screen Stat (Urine) (01/23/23:) Hcg,Qualitative Serum (01/23/23:) Lipase (01/23/23:) Ua Culture If Indicated (01/23/23:) Ed Iv/Invasive Line Start (01/23/23 01:29) Lactated Ringers (Lr 1000 Ml Iv Solution (01/23/23 01:30) Ondansetron Injection (Zofran Injectio (01/23/23 01:30) Covid 19 Inhouse Test (01/23/23 01:38) Blood Culture (01/23/23 01:38) Urine Culture (01/23/23 01:38) Protime With Inr (01/23/23 01:38) Partial Thromboplastin Time (01/23/23 01:38) Chest 1 View, Ap/Pa Only (01/23/23 01:38) Acetaminophen Tablet (Tylenol Tablet) (01/23/23 01:45) Ed Iv/Invasive Line Start (01/23/23 01:38) Ed Iv/Invasive Line Start (01/23/23 01:38) Vital Signs Adult Sepsis Patie Q15M (01/23/23 01:38) O2 (01/23/23 01:38) Remove Rings In Anticipation O (01/23/23 01:38) Lactic Acid Analyzer (01/23/23 01:38) Cefepime Injection (Maxipime Injection) (01/23/23 01:45) Influenza A And B By Pcr (01/23/23 01:38) Isolation Central Supply Req (01/23/23 01:38) Ketorolac Injection (Toradol Injection) (01/23/23 02:00) Manual Differential (01/23/23 01:45) Ondansetron Injection (Zofran Injectio (01/23/23 02:30) Ibuprofen Tablet (Motrin Tablet) (01/23/23 02:30) Ed Iv/Invasive Line Start (01/23/23 02:37) Lactated Ringers (Lr 1000 Ml Iv Solution (01/23/23 02:45) Medications Given in ED Current Medications Medications Dose Ordered Sig/Jenifer Route Start Time Stop Time Status Last Admin Dose Admin Acetaminophen 1,000 mg ONCE PRN PO 01/23/23 01:45 01/23/23 02:16 DC 01/23/23 02:15 1,000 MG Cefepime HCl 1000 mg/Sodium Chloride 50 ml @ 100 mls/hr ONCE ONCE IV 01/23/23 01:45 01/23/23 02:14 DC 01/23/23 02:13 100 MLS/HR Ibuprofen 800 mg ONCE ONCE PO 01/23/23 02:30 01/23/23 02:31 DC 01/23/23 03:09 800 MG Ketorolac Tromethamine 30 mg ONCE ONCE IVP 01/23/23 02:00 01/23/23 02:01 DC 01/23/23 02:09 30 MG Lactated Ringer's 1,000 ml @ 0 mls/hr Q0M ONCE IV 01/23/23 01:30 01/23/23 01:31 DC 01/23/23 02:09 0 MLS/HR Lactated Ringer's 1,000 ml @ 0 mls/hr Q0M ONCE IV 01/23/23 02:45 01/23/23 02:46 DC 01/23/23 04:26 0 MLS/HR Ondansetron HCl 4 mg ONCE ONCE IVP 01/23/23 01:30 01/23/23 01:31 DC 01/23/23 02:10 4 MG Ondansetron HCl 4 mg ONCE ONCE IVP 01/23/23 02:30 01/23/23 02:31 DC 01/23/23 04:26 4 MG Vital Signs/I&O 01/23/23 01/23/23 01/23/23 01:23 05:20 05:30 Temp 38.6 37.0 Pulse 130 90 Resp 20 16 B/P (MAP) 109/89 (96) 102/51 (68) Pulse Ox 95 95 O2 Delivery Room Air Room Air Capillary Refill : Less Than 3 Seconds Blood Pressure Mean: 96 Progress Note : Progress Note PPE WORN COVID AND FLU TESTING DONE SEPSIS PROTOCOL INITIATED GIVEN: -IV FLUIDS -ZOFRAN -CEFEPIME -TORADOL -TYLENOL AND MOTRIN HR DOWN TO LESS THAN 100, BP REMAINED > 100 SYSTOLIC, TEMP DOWN PAIN AND NAUSEA IMPROVED NO DETERIORATION IN PT'S CONDITION DURING ER STAY REVIEWED PRIOR RECORDS, INCLUDING ER VISITS--INCLUDING ER VISIT 01/22/23, ADMITS/H&P'S/CONSULTS/DISCHARGE SUMMARIES, TESTS/PROCEDURES DISCUSSED TEST RESULTS, AND NEED FOR ADMIT AND PT IS AGREEABLE TO PLAN Diagnostic Imaging Comments CT SCAN DONE 01/22/23: No prior studies are available for comparison. The lung bases are clear. The liver and gallbladder are unremarkable. There is no biliary duct dilatation. The pancreas and spleen are unremarkable. No adrenal mass is identified. Left kidney is unremarkable. There is some enlargement to the right kidney. Enhancement pattern is slightly heterogeneous in the lower pole. No definite calculi are seen. There does appear to be some mild periureteral inflammatory stranding at the level of the proximal ureter on the right and renal pelvis. Aorta is nonaneurysmal. Bowel loops are normal caliber. Appendix is unremarkable. There is moderate stool in the colon. There is no ascites. The uterus and bladder are unremarkable. IMPRESSION: There is some mild right renal enlargement with heterogeneous enhancement pattern to the lower pole. In addition, there is a periureteral inflammatory stranding on the right. Possibility of pyelonephritis cannot be entirely excluded. No calculi are seen. No renal abscess is detected. There is no evidence of obstruction. Reviewed: Reviewed by Mo Departure Communication (Admissions) 0202--SPOKE WITH DR. WILL, HOSPITALIST FOR [facility], ACCEPTS PT FOR ADMIT. Impression Primary Impression: Sepsis Additional Impressions: Pyelonephritis Marijuana use Failure of outpatient treatment Disposition: ADMITTED INPATIENT Condition: Stable Admissions Decision to Admit Reason: Admit from ER (General) Decision to Admit/Date: Jan 23, 2023 Time/Decision to Admit Time: 02:05 Departure-Patient Inst. Referrals: EDGAR DOMÍGNUEZ APRN (PCP/Family) Primary Care Physician NICOLE GONSALEZ DO Jan 23, 2023 04:00
[2023-01-23 05:30] VITALS: BP 102/51
[2023-01-23] MEDS: LACTATED RINGERS 1,000 ML IV SCH ×3 (05:37→20:00)
--- NOTE | 2023-01-23 07:46 | Diagnostic Imaging Report ---
EXAM: CHEST 1 VIEW, AP/PA ONLY INDICATION: Fever. COMPARISON: None. FINDINGS: Normal heart size and central pulmonary vascularity. No focal pulmonary opacity. Mild perihilar atelectasis or infiltrate. No pleural effusion or pneumothorax. No acute osseous findings. IMPRESSION: Mild perihilar atelectasis, less likely infiltrate. Dictated by: Dictated on workstation # [id number]
[2023-01-23 07:53] VITALS: BP 96/68
[2023-01-23] MEDS: ONDANSETRON 4 MG/2 ML (SDV) Z0FRAN IV PRN ×3 (08:03→22:17)
[2023-01-23] MEDS: CEFEPIME 1,000 MG/NS 50 ML IVPB IV SCH ×6 (08:03→20:58)
[2023-01-23] MEDS ORDERED: CATHETER FLUSH 10 ML SYR IVP PRN (08:15)
[2023-01-23] MEDS: POTASSIUM CL 10MEQ/50ML IVPB 50 ML IV SCH ×6 (09:03→15:25)
[2023-01-23] MEDS: ACETAMINOPHEN 500 MG TAB (TYLENOL) PO PRN ×2 (11:54→20:07)
[2023-01-23 12:07] VITALS: BP 122/75
--- NOTE | 2023-01-23 12:48 | History & Physical ---
HPI History of Present Illness: Saturday started feeling pain in her back and thought it might be UTI, got OTC cranberry meds. Was trying to drink a lot of vitamin water, also drinks a lot of dr pepper per her admission. She was here yesterday at the ER due to not feeling better and got antibiotics prescribed, but last night started vomiting and cou ldn't stop and came back in. Currently has a headache but is tolerating food. Didn't know she had a fever until she got here, but did have over 101 one of the weekend days but was able to break it and she didn't think it had come back. She was seen at walk-in at [facility] on Saturday and reports she was tested for STIs and got a prescription then. Source: patient Date seen by provider: Jan 23, 2023 Time Seen by Provider: 12:44 Attending Physician Lucy De Luna Aprn PCP Admitting Physician: Saritha Bhatt MD Attending Physician: Saritha Bhatt MD Consult Date of Admission Jan 23, 2023 at 04:56 Home Medications Home Medications Reviewed patient Home Medication Reconciliation performed by pharmacy medication reconciliations senior environmental technician and/or nursing. Patients Allergies have been reviewed. Allergies Coded Allergies: latex (Verified Allergy, Unknown, RASH, 08/20/22) ASA-Arbhig-Czfiao Hx Patient Social History Drug of Choice: previous hx prior to marijuana Smoking Status: Current Everyday Smoker (cigarettes and vape) 2nd Hand Smoke Exposure: Yes Recent Hopitalizations: No Alcohol Use?: Yes Substance type: Marijuana (reports last use August 2022) Tobacco type used: Cigarettes Have you traveled recently?: No Immunizations Up To Date Tetanus Booster (TDap): Less than 5yrs Influenza Vaccine Up-to-Date: No; Not Current First/Initial COVID19 Vaccinat: NA Second COVID19 Vaccination Alexandr: NA Third COVID19 Vaccination Date: NA Past Medical History PMHx: Obesity Depression SurgHx: Oral surgery C section Bilateral salpingectomy Family Medical History Significant Family History: No Pertinent Family Hx Review of Systems ([facility]) Constitutional: fever EENTM: throat pain (relates to vomiting); No nose congestion Respiratory: No cough, No short of breath Cardiovascular: No chest pain Gastrointestinal: constipation (chronic); No diarrhea; nausea, vomiting Genitourinary: No dysuria Musculoskeletal: joint pain, muscle pain Skin: No rash Reviewed Test Results Reviewed Test Results Lab Laboratory Tests Test 01/23/23 01:45 01/23/23 02:00 01/23/23 03:00 Range/Units White Blood Count 17.1 H 4.3-11.0 10^3/uL Red Blood Count 4.25 3.80-5.11 10^6/uL Hemoglobin 10.2 L 11.5-16.0 g/dL Hematocrit 31 L 35-52 % Mean Corpuscular Volume 73 L 80-99 fL Mean Corpuscular Hemoglobin 24 L 25-34 pg Mean Corpuscular Hemoglobin Concent 33 32-36 g/dL Red Cell Distribution Width 15.7 H 10.0-14.5 % Platelet Count 223 130-400 10^3/uL Mean Platelet Volume 10.4 9.0-12.2 fL Immature Granulocyte % (Auto) 1 % Neutrophils (%) (Auto) 89 H 42-75 % Lymphocytes (%) (Auto) 5 L 12-44 % Monocytes (%) (Auto) 5 0-12 % Eosinophils (%) (Auto) 1 0-10 % Basophils (%) (Auto) 0 0-10 % Neutrophils # (Auto) 15.3 H 1.8-7.8 10^3/uL Lymphocytes # (Auto) 0.8 L 1.0-4.0 10^3/uL Monocytes # (Auto) 0.8 0.0-1.0 10^3/uL Eosinophils # (Auto) 0.1 0.0-0.3 10^3/uL Basophils # (Auto) 0.1 0.0-0.1 10^3/uL Immature Granulocyte # (Auto) 0.1 0.0-0.1 10^3/uL Neutrophils % (Manual) 87 % Lymphocytes % (Manual) 8 % Monocytes % (Manual) 1 % Band Neutrophils 4 % Hypochromasia SLIGHT Microcytosis SLIGHT Elliptocytes SLIGHT Prothrombin Time 14.6 12.2-14.7 SEC INR Comment 1.1 0.8-1.4 Activated Partial Thromboplast Time 38 H 24-35 SEC Sodium Level 135 135-145 MMOL/L Potassium Level 2.9 L 3.6-5.0 MMOL/L Chloride Level 105 98-107 MMOL/L Carbon Dioxide Level 17 L 21-32 MMOL/L Anion Gap 13 5-14 MMOL/L Blood Urea Nitrogen 7 7-18 MG/DL Creatinine 0.80 0.60-1.30 MG/DL Estimat Glomerular Filtration Rate 104 BUN/Creatinine Ratio 9 Glucose Level 133 H 70-105 MG/DL Lactic Acid Level 1.14 0.50-2.00 MMOL/L Calcium Level 8.4 L 8.5-10.1 MG/DL Corrected Calcium 9.0 8.5-10.1 MG/DL Total Bilirubin 0.3 0.1-1.0 MG/DL Aspartate Amino Transf (AST/SGOT) 16 5-34 U/L Alanine Aminotransferase (ALT/SGPT) 12 0-55 U/L Alkaline Phosphatase 79 40-136 U/L Total Protein 6.6 6.4-8.2 GM/DL Albumin 3.3 3.2-4.5 GM/DL Amylase Level 20 L 25-125 U/L Lipase < 4 L 8-78 U/L Serum Test, Qualitative NEGATIVE NEGATIVE Influenza Type A (RT-PCR) Not Detected Not Detecte Influenza Type B (RT-PCR) Not Detected Not Detecte SARS-CoV-2 RNA (RT-PCR) Not Detected Not Detecte Urine Color YELLOW Urine Clarity CLEAR Urine pH 6.0 5-9 Urine Specific [place] 1.020 1.016-1.022 Urine Protein 1+ H NEGATIVE Urine Glucose (UA) NEGATIVE NEGATIVE Urine Ketones NEGATIVE NEGATIVE Urine Nitrite NEGATIVE NEGATIVE Urine Bilirubin NEGATIVE NEGATIVE Urine Urobilinogen 1.0 < = 1.0 MG/DL Urine Leukocyte Esterase TRACE H NEGATIVE Urine RBC (Auto) 3+ H NEGATIVE Urine RBC >100 H /HPF Urine WBC 2-5 /HPF Urine Squamous Epithelial Cells 0-2 /HPF Urine Crystals NONE /LPF Urine Bacteria FEW H /HPF Urine Casts NONE /LPF Urine Mucus SMALL H /LPF Urine Culture Indicated CULTURE PENDING Urine Opiates Screen NEGATIVE NEGATIVE Urine Oxycodone Screen NEGATIVE NEGATIVE Urine Methadone Screen NEGATIVE NEGATIVE Urine Propoxyphene Screen NEGATIVE NEGATIVE Urine Barbiturates Screen NEGATIVE NEGATIVE Ur Tricyclic Antidepressants Screen NEGATIVE NEGATIVE Urine Phencyclidine Screen NEGATIVE NEGATIVE Urine Amphetamines Screen NEGATIVE NEGATIVE Urine Methamphetamines Screen NEGATIVE NEGATIVE Urine Benzodiazepines Screen POSITIVE H NEGATIVE Urine Cocaine Screen NEGATIVE NEGATIVE Urine Cannabinoids Screen POSITIVE H NEGATIVE Radiology CXR 01/23: IMPRESSION: Mild perihilar atelectasis, less likely infiltrate. Physical Exam-([facility]) Physical Exam Vital Signs VS - Last 72 Hours, by Label 01/23/23 01/23/23 01/23/23 01/23/23 01:23 05:20 05:30 07:40 Temp 38.6 37.0 Pulse 130 90 91 Resp 20 16 B/P (MAP) 109/89 (96) 102/51 (68) Pulse Ox 95 95 O2 Delivery Room Air Room Air 01/23/23 01/23/23 01/23/23 01/23/23 07:53 08:00 12:07 13:03 Temp 35.9 36.3 Pulse 91 80 89 Resp 18 18 B/P (MAP) 96/68 (77) 122/75 (91) Pulse Ox 94 98 O2 Delivery Room Air Room Air Room Air 01/23/23 15:47 Temp 36.6 Pulse 72 Resp 20 B/P (MAP) 106/66 (79) Pulse Ox 97 O2 Delivery Room Air Capillary Refill : Less Than 3 Seconds General Appearance: WD/WN, no apparent distress Respiratory: lungs clear, normal breath sounds Cardiovascular: regular rate, rhythm, no murmur Gastrointestinal: normal bowel sounds, non tender, soft Back: no CVA tenderness, other (ttp right lower back near iliac crest level) Neurologic/Psychiatric: alert, normal mood/affect Skin: normal color, warm/dry Assessment/Plan Assessment/Plan Admission Status: Inpatient Order (span 2 midnights) Reason for Inpatient Admission: Sepsis (1) Sepsis Status: Acute Assessment & Plan: Secondary to pyelonephritis. Improving with antibiotics and IVF. (2) Pyelonephritis Status: Acute Assessment & Plan: Urine culture from 01/22 with E coli. Continue cefepime and LR. Consider nephrolithiasis given marked pain and hematuria. (3) Hypokalemia Status: Acute Assessment & Plan: Replace and monitor. (4) DVT prophylaxis Status: Acute Assessment & Plan: Enoxaparin SARITHA BHATT MD Jan 23, 2023 12:48
[2023-01-23] MEDS ORDERED: SULF-221 PO (14:33)
[2023-01-23] MEDS ORDERED: BISA-151 PO (14:33)
[2023-01-23] MEDS ORDERED: NAPR220C61 PO (14:33)
[2023-01-23] MEDS ORDERED: POLY17PO6 PO (14:33)
[2023-01-23] MEDS ORDERED: LACT1CAP62 PO (14:33)
[2023-01-23] MEDS: IBUPROFEN 800 MG (MOTRIN) TAB PO PRN (15:24)
[2023-01-23 15:47] VITALS: BP 106/66
[2023-01-23] MEDS ORDERED: BISACODYL 5 MG (DULCOLAX) TABLET PO PRN (18:30)
[2023-01-23] MEDS ORDERED: polyethylene glycoL POWDER 17 GM (MIRALAX) PACK PO PRN (18:30)
[2023-01-23] MEDS: ENOXAPARIN 40 MG/0.4 ML (LOVENOX) SYR SC SCH (18:51)
[2023-01-23 19:21] VITALS: BP 104/70
[2023-01-23 23:10] VITALS: BP 136/82
[2023-01-24] MEDS: CEFEPIME 1,000 MG/NS 50 ML IVPB IV SCH ×6 (01:56→14:21)
[2023-01-24] MEDS: IBUPROFEN 800 MG (MOTRIN) TAB PO PRN (01:56)
[2023-01-24] MEDS: ONDANSETRON 4 MG/2 ML (SDV) Z0FRAN IV PRN (02:59)
[2023-01-24 03:05] VITALS: BP 116/75
[2023-01-24] MEDS: LACTATED RINGERS 1,000 ML IV SCH ×3 (03:28→11:15)
[2023-01-24] MEDS: ENOXAPARIN 40 MG/0.4 ML (LOVENOX) SYR SC SCH (05:46)
[2023-01-24 05:47] LABS: BASOPHILS % (AUTO) 0 % (0-10); EOSINOPHILS % (AUTO) 0 % (0-10); HEMATOCRIT 28 % (35-52); HEMOGLOBIN 8.9 g/dL (11.5-16.0); LYMPHOCYTES # (AUTO) 0.9 10^3/uL (1.0-4.0); LYMPHOCYTES % (AUTO) 11 % (12-44); MEAN CORPUSCULAR HEMOGLOBIN 24 pg (25-34); MEAN CORPUSCULAR HGB CONC 32 g/dL (32-36); MEAN CORPUSCULAR VOLUME 75 fL (80-99); MEAN PLATELET VOLUME 11.8 fL (9.0-12.2); MONOCYTES # (AUTO) 0.4 10^3/uL (0.0-1.0); MONOCYTES % (AUTO) 5 % (0-12); NEUTROPHILS # (AUTO) 7.2 10^3/uL (1.8-7.8); NEUTROPHILS % (AUTO) 84 % (42-75); PLATELET COUNT 195 10^3/uL (130-400); WHITE BLOOD COUNT 8.6 10^3/uL (4.3-11.0)
[2023-01-24 05:59] LABS: ALBUMIN 2.8 GM/DL (3.2-4.5); POTASSIUM 3.6 MMOL/L (3.6-5.0)
[2023-01-24 06:01] LABS: CALCIUM 8.4 MG/DL (8.5-10.1)
[2023-01-24 06:02] LABS: TOTAL PROTEIN 5.6 GM/DL (6.4-8.2)
[2023-01-24 06:04] LABS: BILIRUBIN,TOTAL 0.2 MG/DL (0.1-1.0)
[2023-01-24 06:05] LABS: CREATININE SERUM 0.7 MG/DL (0.60-1.30)
[2023-01-24 07:37] VITALS: BP 116/66
[2023-01-24] MEDS ORDERED: NON-FORMULARY MEDICATION 1 EA EA (Lactobacillus Acidophilus (Probiotic) 1 EACH) PO SCH (09:00)
[2023-01-24] MEDS ORDERED: LACTOBACILLUS ACIDOPHILUS (PROBIOTIC) CAPSULE PO SCH (09:00)
[2023-01-24] MEDS: ACETAMINOPHEN 500 MG TAB (TYLENOL) PO PRN (11:33)
[2023-01-24 11:49] VITALS: BP 105/69
[2023-01-24] MEDS ORDERED: CIPR-225 PO (14:26)
--- NOTE | 2023-01-24 14:28 | Discharge Summary ---
Discharge Summary Hospital Course Problems/Diagnosis: (1) Sepsis Status: Resolved Resolution Date/Time: 01/24/23 @ 14:27 Assessment & Plan: Secondary to pyelonephritis. Improving with antibiotics and IVF. Discharged on cipro for UTI with E coli, resistant only to ampicillin. (2) Pyelonephritis Status: Acute Assessment & Plan: Urine culture from 01/22 with E coli. Continue cefepime and LR. Consider nephrolithiasis given marked pain and hematuria. Discharged with cipro to complete course. (3) Hypokalemia Status: Resolved Resolution Date/Time: 01/24/23 @ 14:28 Assessment & Plan: Replaced Hospital Course Date of Admission: Jan 23, 2023 at 04:56 Admission Diagnosis : Family Physician/Provider: Lucy De Luna Manifold Operator Date of Discharge: 01/24/23 Discharge Diagnosis: See problem list Hospital Course: See problem list Labs and Pending Lab Test: Laboratory Tests 01/24/23 04:59: White Blood Count 8.6, Red Blood Count 3.78L, Hemoglobin 8.9L, Hematocrit 28L, Mean Corpuscular Volume 75L, Mean Corpuscular Hemoglobin 24L, Mean Corpuscular Hemoglobin Concent 32, Red Cell Distribution Width 15.7H, Platelet Count 195, Mean Platelet Volume 11.8, Immature Granulocyte % (Auto) 1, Neutrophils (%) (Auto) 84H, Lymphocytes (%) (Auto) 11L, Monocytes (%) (Auto) 5, Eosinophils (%) (Auto) 0, Basophils (%) (Auto) 0, Neutrophils # (Auto) 7.2, Lymphocytes # (Auto) 0.9L, Monocytes # (Auto) 0.4, Eosinophils # (Auto) 0.0, Basophils # (Auto) 0.0, Immature Granulocyte # (Auto) 0.0, Sodium Level 138, Potassium Level 3.6, Chloride Level 108H, Carbon Dioxide Level 19L, Anion Gap 11, Blood Urea Nitrogen 5L, Creatinine 0.70, Estimat Glomerular Filtration Rate 121, BUN/Creatinine Ratio 7, Glucose Level 105, Calcium Level 8.4L, Corrected Calcium 9.4, Total Bilirubin 0.2, Aspartate Amino Transf (AST/SGOT) 24, Alanine Aminotransferase (ALT/SGPT) 19, Alkaline Phosphatase 81, Total Protein 5.6L, Albumin 2.8L Home Meds Active Reported Probiotic (Lactobacillus Acidophilus) 10 Billion Cell Capsule 1 Each PO DAILY Women's Gentle Laxative (Bisacodyl) 5 Mg Tablet.dr 5 Mg PO BID PRN Miralax (Polyethylene Glycol 3350) 17 Gram Powd.pack 17 Gm PO DAILY PRN Naproxen Sodium 220 Mg Capsule 440 Mg PO BID PRN Bactrim Ds Tablet (Sulfamethoxazole/Trimethoprim) 800 Mg-160 Mg Tablet 1 Ea PO BID FILLED 01-22-2023 #28/14 DAY SUPPLY Citalopram HBr (Citalopram Hydrobromide) 20 Mg Tablet 20 Mg PO HS Assessment/Pt DC Instructions Hold citalopram while taking cipro. Follow up with primary provider within a week of discharge. Discharge Diet: No Restrictions Activity as Tolerated: Yes Discharge Physical Examination Allergies: Coded Allergies: latex (Verified Allergy, Unknown, RASH, 08/20/22) General Appearance: No Apparent Distress Respiratory: Lungs Clear, Normal Breath Sounds Cardiovascular: Regular Rate, Rhythm Gastrointestinal: Normal Bowel Sounds, Non Tender, Soft Extremity: No Pedal Edema Skin: Normal Color, Warm/Dry Neurologic/Psychiatric: Alert, Normal Mood/Affect SARITHA WILL MD Jan 24, 2023 14:28
[2023-01-24 15:25] VITALS: BP 105/69
== END 2023-01-24 15:25 | disposition home or self-care (01) | DRG 872 ==
LOC: EDUNIT# 01:21 → ER 01:23 → 4TH 04:56
PROVIDERS: ADMIT Family Medicine; ATTEND Family Medicine
DX: A41.51 Sepsis due to Escherichia coli [E. coli] (principal); N10 Acute pyelonephritis; Z68.41 Body mass index [BMI] 40.0-44.9, adult; E87.6 Hypokalemia; F17.210 Nicotine dependence, cigarettes, uncomplicated; F17.290 Nicotine dependence, other tobacco product, uncomplicated; E66.9 Obesity, unspecified; F41.9 Anxiety disorder, unspecified; F32.A Depression, unspecified; Z79.899 Other long term (current) drug therapy; F12.90 Cannabis use, unspecified, uncomplicated; Z20.822 Contact with and (suspected) exposure to COVID-19
CPT/HCPCS: 36415; 71045; 80053; 80306; 81000; 82150; 83605; 83690; 84703; 85007; 85025; 85027; 85610; 85730; 87040; 87088; 87636; 93041

== ENCOUNTER → 2023-07-30 | Outpatient (CLI) | payer MEDICAID ==
[~2023-07-30] MED LIST changes: +BISA-151 PO; +CIPR-225 PO; +LACT1CAP62 PO; +NAPR220C61 PO; +POLY17PO6 PO; +SULF-221 PO
--- NOTE | 2023-07-30 13:14 | Diagnostic Imaging Report ---
PROCEDURE: US Non-ob pelvis comp/trans. INDICATION: PrimaryDx R10.31 RIGHT LOWER QUADRANT PAIN TECHNIQUE: Multiple real time valenzuela scale sonographic images were obtained of the pelvis transabdominally and endovaginally. CORRELATION STUDY: None FINDINGS: UTERUS: 7.4 x 3.9 x 4.5 cm. The uterus appearing unremarkable. ENDOMETRIUM: 0.2 cm. The endometrium is of normal thickness. RIGHT OVARY: 2.6 x 2.2 x 1.9 cm, unremarkable. LEFT OVARY: 3.2 x 1.2 x 1.7 cm, unremarkable. Ovarian blood flow is present. No significant free pelvic fluid. IMPRESSION: 1. Unremarkable appearing pelvic ultrasound examination. Dictated by: Dictated on workstation # [id number]
== END ==
LOC: RAD 08:42
PROVIDERS: ATTEND Nurse Practitioner Women's Health
DX: R10.31 Right lower quadrant pain (principal)
CPT/HCPCS: 76830; 76856

== ENCOUNTER 2023-08-06 05:28 | Outpatient (CLI) | payer MEDICAID ==
[~2023-08-06] VITALS: Ht 152.4 cm; Wt 97.5 kg
== END 2023-08-06 14:05 | disposition home or self-care (01) ==
LOC: PREOP 05:28
PROVIDERS: ATTEND Obstetrics & Gynecology
DX: Z01.818 Encounter for other preprocedural examination (principal)

== ENCOUNTER 2023-08-13 08:24 | Day surgery (SDC) | payer MEDICAID ==
[2023-08-13] VITALS (10 sets, daily range): BP systolic 104–122; BP diastolic 78–84
[~2023-08-13] VITALS: Ht 152.4 cm; Wt 97.5 kg
[2023-08-13 09:05] LABS: BASOPHILS # (AUTO) 0.1 10^3/uL (0.0-0.1); BASOPHILS % (AUTO) 1 % (0-10); EOSINOPHILS # (AUTO) 0.3 10^3/uL (0.0-0.3); EOSINOPHILS % (AUTO) 3 % (0-10); HEMATOCRIT 38 % (35-52); HEMOGLOBIN 12.1 g/dL (11.5-16.0); LYMPHOCYTES # (AUTO) 2.4 10^3/uL (1.0-4.0); LYMPHOCYTES % (AUTO) 27 % (12-44); MEAN CORPUSCULAR HEMOGLOBIN 24 pg (25-34); MEAN CORPUSCULAR HGB CONC 32 g/dL (32-36); MEAN CORPUSCULAR VOLUME 77 fL (80-99); MEAN PLATELET VOLUME 11.2 fL (9.0-12.2); MONOCYTES # (AUTO) 0.6 10^3/uL (0.0-1.0); MONOCYTES % (AUTO) 6 % (0-12); NEUTROPHILS # (AUTO) 5.5 10^3/uL (1.8-7.8); NEUTROPHILS % (AUTO) 62 % (42-75); PLATELET COUNT 310 10^3/uL (130-400); WHITE BLOOD COUNT 8.8 10^3/uL (4.3-11.0)
[2023-08-13] MEDS: LACTATED RINGERS 1,000 ML 1,000 ML IV PRN ×2 (09:18→12:55)
[2023-08-13] MEDS ORDERED: BUPIVACAINE 0.25% 30 ML VIAL ONE (10:47)
[2023-08-13] MEDS ORDERED: fentaNYL INJECTION 100 MCG/2 ML VIAL ONE (11:31)
[2023-08-13] MEDS ORDERED: MIDAZOLAM INJ 2 MG/2 ML VIAL ONE (11:31)
--- NOTE | 2023-08-13 11:31 | Progress Note-Pre Operative ---
Pre-Operative Progress Note Date of Available H&P: Aug 13, 2023 Date H&P Reviewed: Aug 13, 2023 Time H&P Reviewed: 11:10 History & Physical: H&P Reviewed, Patient Examed, No changes noted Pre-Operative Diagnosis: AUB menorrhagia DEVORA ROSENBERG DO Aug 13, 2023 11:31
[2023-08-13] MEDS ORDERED: ACHD5005 PO (11:34)
--- NOTE | 2023-08-13 11:34 | Discharge Inst-Women's Service ---
Discharge Inst-Women's Serv Depart Medication/Instructions New, Converted or Re-Newed RX: Transmitted to Pharmacy Problems Reviewed?: Yes Consults/Follow Up Additional Follow Up: Yes Orders/Referrals Dr. Rosenberg in 3-4 weeks Activity Activity: Activity as Tolerated Driving Instructions: No Driving for 1 Week NO SMOKING: NO SMOKING Nothing Inside Vagina: No Douching, No Grayson, No Tampons Diet Discharge Diet: No Restrictions Symptoms to Report to : Bleeding Excessive, Pain Increased, Fever Over 101 Degrees F, Vaginal Bleeding Increase, Questions/Concerns For Any Problems or Questions: Contact Your Physician DEVORA ROSENBERG DO Aug 13, 2023 11:34
[2023-08-13] MEDS ORDERED: KETOROLAC INJ 30 MG/ML VIAL IVP ONE (11:45)
[2023-08-13] MEDS ORDERED: HYDROcodone/ACETAMINOPHEN 5 MG/325 MG TABLET PO PRN (11:45)
[2023-08-13] MEDS ORDERED: D5 LR 1,000 ML IV SOLN 1,000 ML IV SCH (11:45)
[2023-08-13] MEDS ORDERED: ONDANSETRON INJECTION 4 MG/2 ML (SDV) IVP PRN ×2 (11:45→12:30)
[2023-08-13] MEDS ORDERED: ONDANSETRON INJECTION 4 MG/2 ML (SDV) ONE (11:54)
[2023-08-13] MEDS ORDERED: LIDOCAINE PF 2% 5 ML VIAL ONE (11:54)
[2023-08-13] MEDS ORDERED: proPOfol INJECTION 200 MG/20 ML VIAL IV ONE (11:54)
[2023-08-13] MEDS ORDERED: dexAMETHasone INJ 10 MG/ML 1 ML VIAL ONE (11:54)
[2023-08-13] MEDS ORDERED: BUPIVACAINE 0.25% 30 ML VIAL INJ ONE (12:01)
[2023-08-13] MEDS ORDERED: SEVOFLURANE (ULTANE) 15 ML INHAL SOLN ONE (12:04)
[2023-08-13] MEDS ORDERED: KETOROLAC INJ 30 MG/ML VIAL ONE (12:04)
--- NOTE | 2023-08-13 12:25 | Anesthesia-General Post-Op ---
General Patient Condition Mental Status/LOC: Same as Preop Cardiovascular: Satisfactory Nausea/Vomiting: Absent Respiratory: Satisfactory Pain: Controlled Complications: Absent Post Op Complications Complications None Follow Up Care/Instructions Patient Instructions None needed. Anesthesia/Patient Condition Patient Condition Patient is doing well, no complaints, stable vital signs, no apparent adverse anesthesia problems. No complications reported per nursing. IKE GARCÍA CRNA Aug 13, 2023 12:24
[2023-08-13] MEDS ORDERED: MEPERIDINE INJ 50 MG/ML VIAL IVP ONE (12:30)
[2023-08-13] MEDS ORDERED: fentaNYL INJECTION 100 MCG/2 ML VIAL IVP ONE (12:30)
[2023-08-13] MEDS ORDERED: morphine INJ 10 MG/ML 1ML (SYR OR VIAL) IVP ONE (12:30)
[2023-08-13] MEDS ORDERED: morphine INJ 10 MG/ML 1ML (SYR OR VIAL) ONE (12:39)
--- NOTE | 2023-08-13 23:15 | OPERATIVE REPORT ---
DATE OF SERVICE: 08/13/2023 PREOPERATIVE DIAGNOSES: 1. A 28-year-old female with abnormal uterine bleeding. 2. Menorrhagia. POSTOPERATIVE DIAGNOSES: 1. A 28-year-old female with abnormal uterine bleeding. 2. Menorrhagia. PROCEDURE: D and C, hysteroscopy with Amira endometrial ablation. SURGEON: Brian Hi DO ANESTHESIA: LMA general. ESTIMATED BLOOD LOSS: Minimal. URINE OUTPUT: 200 mL drained at the end of the procedure. FLUIDS: 800 mL lactated Ringer's solution. FINDINGS: Grossly normal-appearing external female genitalia. Grossly normal-appearing endometrium noted on hysteroscope. SPECIMEN SENT: Endometrial curettings. INDICATIONS FOR PROCEDURE: This 28-year-old female, who is a patient had tried more conservative measures for history of ongoing heavy bleeding. She had also undergone a permanent sterilization procedure and wished to proceed with hysterectomy. However, I discussed with the patient the risk of hysterectomy versus a more conservative measures such as endometrial ablation and she was agreeable to proceed with endometrial ablation. Risks of procedure discussed with the patient in detail and after all questions were answered, consent was obtained, the patient was taken to the operating room. OPERATIVE DESCRIPTION IN DETAIL: Once in the operating room, general anesthesia was found to be adequate, was placed in dorsal lithotomy position, prepped and draped in normal sterile fashion. A timeout was performed. The bladder was drained using straight catheterization. A right angle retractor was use to visualize the cervix after weighted speculum was placed in the patient's vagina. Once the cervix was in view, I grasped at 12 o'clock position using a long Allis clamp. I then performed a paracervical block at 3 and 9 o'clock positions on the cervix. Care was taken to aspirate for injecting 5 mL of 0.25% Marcaine injected at each site. I then gently sound the uterine cavity, depth was found to be 8 cm. I am able to introduce the hysteroscope into the uterus and using normal saline as my visual medium, I am able to identify normal endometrial structures including bilateral tubal ostia, which were identified. I then performed a gentle curettage of the endometrium and collected this and sent this as endometrial curettings. I then placed a Amira endometrial ablation device at a depth of 4.5 cm, deploying it within the uterus, adequate spacing is noted on the handheld device. I then inflate the seal and activate the Amira device. The safety checklist are successful. I then activated the device for 120 seconds, at which point the cycle was notified to be completed. I removed the device. There was evidence of shereen on the Amira device. A brief hysteroscope using normal saline once again identified the endometrium was found to be now cauterized and ablated. I then removed the hysteroscope. There was no active bleeding noted from any of my dissection planes. Lap and sponge count was correct at the end of the procedure. Instrument counts correct as well after all the instruments were removed from the patient's vagina. Job ID: [id number] DocumentID: [id number] Dictated Date: 08/13/2023 13:47:43 Clin Application Specialist Date: 08/13/2023 23:13:00 Dictated By: DO MEHRAN NIÑO
== END 2023-08-13 14:08 | disposition home or self-care (01) ==
LOC: SDC 08:24
PROVIDERS: ATTEND Obstetrics & Gynecology
DX: N92.0 Excessive and frequent menstruation with regular cycle (principal); N93.9 Abnormal uterine and vaginal bleeding, unspecified; E66.01 Morbid (severe) obesity due to excess calories; F17.210 Nicotine dependence, cigarettes, uncomplicated; Z68.41 Body mass index [BMI] 40.0-44.9, adult
CPT/HCPCS: 36415; 84703; 85025; 86850; 86900; 86901; 87081; 88305